=== PATIENT | male | born 1985 | race Caucasian/White ===

== ENCOUNTER 2021-12-12 11:45 | Inpatient (IN) | payer MEDICAID, SELFPAY ==
--- NOTE | ~2021-12-12 | CT_ITS ---
EXAMINATION: CT ABDOMEN AND PELVIS WITHOUT CONTRAST CLINICAL INFORMATION: Abdominal pain COMPARISON: None TECHNIQUE: Multidetector volumetric imaging was performed from the superior aspect of the liver through the pubic symphysis. Sagittal and coronal reformatted images were obtained on the technologist's workstation. This CT examination was performed using dose optimization techniques as appropriate, variously including the following: *Automated exposure control *Adjustment of mA and/or kV according to patient size (this includes techniques or standardized protocols for targeted exams where dose is matched to indication/reason for exam; i.e. extremities or head) *Use of iterative reconstruction technique DLP: 905 mGy-cm FINDINGS: LUNG BASES: The visualized lung bases are unremarkable. LIVER, GALLBLADDER, AND BILIARY TREE: The liver is normal in size, shape, and attenuation. No focal hepatic lesion or biliary ductal dilatation is present. The gallbladder is unremarkable with no evidence of radiopaque gallstones, gallbladder wall thickening, or obvious pericholecystic inflammatory changes. PANCREAS: Unremarkable. SPLEEN: Unremarkable. ADRENAL GLANDS: Unremarkable. KIDNEYS AND URETERS: The kidneys are normal in size, shape, and attenuation. No hydronephrosis, hydroureter, or calculi seen. No perinephric stranding. BLADDER: Unremarkable. GASTROINTESTINAL TRACT: The small and large bowel are unremarkable. The appendix is unremarkable. ABDOMINAL WALL: No significant hernia is appreciated. LYMPH NODES: Normal. VASCULAR: Unremarkable. PELVIC VISCERA: Unremarkable. OSSEOUS STRUCTURES: Unremarkable. CT/CT abdomen pelvis wo con IMPRESSION: Unremarkable exam. Fleischner guidelines were followed.
--- NOTE | ~2021-12-12 | CT_ITS ---
EXAMINATION: CT HEAD WITHOUT CONTRAST CLINICAL INFORMATION: Fall. Head injury. COMPARISON: None TECHNIQUE: Contiguous axial imaging was performed from the skull base to vertex without intravenous administration of contrast. This CT examination was performed using dose optimization techniques as appropriate, variously including the following: *Automated exposure control *Adjustment of mA and/or kV according to patient size (this includes techniques or standardized protocols for targeted exams where dose is matched to indication/reason for exam; i.e. extremities or head) *Use of iterative reconstruction technique DLP: 763 mGy-cm FINDINGS: There is no evidence of acute intracranial hemorrhage or territorial infarction. No abnormal mass effect or midline shift is seen. Guerrero to white matter differentiation is well preserved. No extra-axial fluid collections are identified. The ventricles are normal in size. There is no abnormal attenuation within the brain parenchyma. The osseous structures and soft tissues are normal. The mastoid air cells and visualized portions of the paranasal sinuses are well aerated. CT/CT head/brain wo con IMPRESSION: Unremarkable exam.
--- NOTE | ~2021-12-12 | US_ITS ---
EXAMINATION: US ABDOMEN LIMITED CLINICAL INFORMATION: Abnormal liver function tests. COMPARISON: Abdomen CT from 12/12/2021 TECHNIQUE: Real-time imaging of the right upper quadrant abdominal viscera. FINDINGS: PANCREAS: Normal. LIVER: Liver has normal size and contour. The liver parenchyma is diffusely, mildly hyperechoic. No focal liver lesion or intrahepatic bile duct dilatation. GALLBLADDER: There are a few gallbladder polyps of < 0.5 cm size. Otherwise, gallbladder is unremarkable. COMMON BILE DUCT: Normal in caliber measuring 0.4 cm in diameter. RIGHT KIDNEY: The visualized kidney is normal. The lower pole is partially obscured by bowel gas. No hydronephrosis. No renal calculi or focal parenchymal lesions. The kidney measures approximately 11 cm in length. FREE FLUID: None. US/US abdomen limited IMPRESSION: * Mild steatosis of the liver. * Gallbladder has a few small polyps. * No acute sonographic findings in the examined abdomen.
--- NOTE | ~2021-12-12 | XR_ITS ---
EXAMINATION: RIGHT HIP AND CHEST. CLINICAL INFORMATION: Fall with injury. Inhalation abnormality COMPARISON: None TECHNIQUE: Chest 2 views. AP pelvis and right hip 3 views. FINDINGS: Chest: The lungs are well-expanded and clear. The heart size is borderline normal. Pulmonary vascularity is normal. No gross bony modality seen. AP pelvis: There is normal symmetry of bilateral hip joints and SI joints. No fractures involving the pelvic bones. The soft tissues are normal. AP and frog-leg views right hip reveal no visible acute fracture, dislocation or bony modality. The soft tissues are normal. XR/XR chest 2V IMPRESSION: Unremarkable chest exam. Unremarkable AP pelvis and right hip exam.
--- NOTE | ~2021-12-12 | US_ITS ---
EXAMINATION: US VENOUS ULTRASOUND WITH DOPPLER LOWER EXTREMITY, RIGHT CLINICAL INFORMATION: Swelling and pain COMPARISON: None TECHNIQUE: Ultrasound of the deep veins is performed from the hip to the calf with compression sonography and color and pulse Doppler assessment. Spectral analysis with color-flow imaging is performed. FINDINGS: There is normal venous respiratory variation and augmented flow. The visualized common femoral vein, superficial femoral vein, profunda femoral vein, popliteal vein, and the trifurcation region appear patent. The mid and distal superficial femoral and popliteal veins could not the adequately compressed however this may be due to patient body habitus. There is no significant popliteal fossa cyst. US/US venous duplex LE RT IMPRESSION: No DVT demonstrated in the right lower extremity. Exam is limited due to body habitus.
--- NOTE | ~2021-12-12 | XR_ITS ---
EXAMINATION: RIGHT HIP AND CHEST. CLINICAL INFORMATION: Fall with injury. Inhalation abnormality COMPARISON: None TECHNIQUE: Chest 2 views. AP pelvis and right hip 3 views. FINDINGS: Chest: The lungs are well-expanded and clear. The heart size is borderline normal. Pulmonary vascularity is normal. No gross bony modality seen. AP pelvis: There is normal symmetry of bilateral hip joints and SI joints. No fractures involving the pelvic bones. The soft tissues are normal. AP and frog-leg views right hip reveal no visible acute fracture, dislocation or bony modality. The soft tissues are normal. XR/XR hip RT w PEL1V IMPRESSION: Unremarkable chest exam. Unremarkable AP pelvis and right hip exam.
[2021-12-12 11:49] VITALS: BP 110/45; PULSE 78; RESP 18; TEMP 36.6; O2SAT 98; BMI 39.5
--- NOTE | 2021-12-12 12:01 | ED_ITS ---
HPI - General Adult General Chief complaint: General Medical Stated complaint: Fall Time Seen by Provider: 12/12/21 12:01 Source: patient, family (mother) and aerial photograph interpreter Mode of arrival: ambulatory Limitations: language barrier History of Present Illness HPI narrative: Patient is a 36 year old male presenting to the emergency department today after getting dizzy and passing out. Patient states that he was working on a car that was running, in a sealed garage. Patient denies intentionally trying to hurt himself. Patient denies any substance use. Patient denies any current dizziness, lightheadedness, abdominal pain, nausea, vomiting, fever, chills, blurry vision, double vision, loss of vision, chest pain, difficulty breathing, shortness of breath, back pain, night sweats, pain with urination, increased urinary frequency, increased urinary urgency, blood in his urine or stool, syncope or a near syncopal episode, recent trauma or falls, bowel incontinence, bladder incontinence, bowel retention, bladder retention, or any other complaints at this time. Location: head Radiation: non-radiation Severity: mild Severity scale (1-10): 3 Quality: dull Pain Consistency: constant Exacerbating factors: none Associated symptoms: denies other symptoms Treatments prior to arrival: none Related Data Home Medications Medication Instructions Recorded Confirmed No Known Home Meds 12/12/21 12/12/21 Allergies Allergy/AdvReac Type Severity Reaction Status Date / Time No Known Allergies Allergy Verified 12/12/21 12:02 Review of Systems Constitutional: Constitutional: Reports no additional constitutional complaints, Denies chills, Denies fever(s), Reports headache(s) and Denies night sweats Eyes: Eyes: Reports no additional eye complaints, Denies blurry vision, Denies change in vision, Denies diplopia, Denies eye discharge, Denies loss of vision and Denies eye pain ENT: Denies dizziness and Reports headache(s) Cardiovascular: Cardiovascular: Reports no additional cardiovascular complaints, Denies chest pain, Denies lightheadedness, Denies Loss of Consciousness and Denies dyspnea Respiratory: Respiratory: Reports no additional respiratory complaints and Denies dyspnea Gastrointestinal: Gastrointestinal: Reports no additional gastrointestinal complaints, Denies abdominal pain, Denies melena, Denies hematochezia, Denies change in bowel habits and Denies change in stool character Genitourinary: Genitourinary: Reports no additional male genitourinary complaints, Denies hematuria, Denies oliguria, Denies difficulty urinating, Denies dysuria, Denies urinary frequency, Denies urinary hesitancy, Denies urinary incontinence and Denies urinary urgency Musculoskeletal: Musculoskeletal: Reports no additional musculoskeletal complaints, Denies numbness and Denies tingling Neurologic: Denies dizziness, Reports headache(s), Denies loss of vision, Denies numbness and Denies tingling Psychiatric: Psychiatric: Reports no additional psychiatric complaints Endocrine: Endocrine: Reports no additional endocrine complaints Hematologic/Lymphatic: Hematologic/Lymphatic: Reports no additional hematologic/lymphatic complaints Allergic/Immunologic: Allergic/Immunologic: Reports no additional allergic/immunologic complaints [facility] Past Medical History Attestation statement: The following information was validated with the patient. Source: old records reviewed Social History Social History Advance Directives: No Advance Directives Information Provided: No Physical Exam ED Vital Signs: Vital Signs - 24 hr 12/12/21 11:49 Temperature 98 F Pulse Rate 78 Respiratory Rate 18 Blood Pressure 110/45 L Pulse Oximetry 98 BMI result Body Mass Index 39.5 Const General: cooperative, no acute distress, alert and awake Nutritional Appearance: well nourished Orientation/consciousness: patient oriented x3 Limitations: no limitations HENMT Head: Yes normal to inspection and Yes atraumatic Ears: hearing grossly normal bilaterally and external ears normal General nose exam: Normal external nose present, no nasal discharge noted and no epistaxis Face and sinus: Yes normal facial exam, No abrasion and No laceration Mouth: Normal oral and palatal mucosa present, no drooling and no muffled voice Eyes General: appearance normal, both eyes and all related structures Periorbital: periorbital findings normal Eyelids: Yes eyelids normal Conjunctivae: conjunctivae normal Pupils: Equal, round and reactive pupils present EOM: EOMs intact bilaterally Neck Neck: Yes normal visual inspection, Yes full ROM and Yes no lymphadenopathy Chest Chest palpation & inspection: normal inspection of the chest Resp Effort & Inspection: normal respiratory effort and able to speak in complete sentences Auscultation: clear to auscultation bilaterally Cardio Rate: regular rate Rhythm: regular rhythm GI Inspection: Yes normal to inspection Skin Other: mild bruising to the forehead Neuro General: patient oriented x3 and moves all extremities Cranial nerves: Yes Equal, round and reactive pupils present Cognition (Neuro): normal cognition Motor exam (neuro): 5/5 motor strength present throughout Sensory Exam: Normal double simultaneous stimulation for sensation Coordination: [id number] test normal Extrem General: Yes normal to inspection, Yes full ROM and Yes capillary refill normal Psych Appearance: grossly normal Mental Status: mental status grossly normal Affect: normal affect Attitude: cooperative Thought process: Normal thought process present Thought content: Normal thought content present Insight: Good insight present (Psych) Medical Decision Making MDM Narrative Medical decision making narrative: Patient is a 36 year old male presenting to the emergency department today with accidental carbon monoxide poisoning, elevated LFTs, and an acute kidney injury. Patient's physical exam showed minimal bruising to the patient's forehead but was otherwise unremarkable. Patient's blood work showed markedly elevated LFTs and a creatinine as well as a markedly low GFR. Patient's white blood cell count was also elevated. Patient's acetaminophen level and ethanol levels were normal. Patient's carbon monoxide was 4.9%. Upon reevaluation, patient admitted to using Percocet regularly and a large amount of Tylenol on a daily basis. Additionally, patient states that he uses cocaine. Patient denied any alcohol abuse or use. Patient's EKG was unremarkable. Patient's head and abdominal CT showed no acute process. Patient's right hip x-ray showed no acute process. I explained my physical exam findings as well as all test results to the patient and the patient's mother. I answered all questions asked by the patient and the patient's mother. Patient was placed on 15LPM of Oxygen via NRB to address his elevated carbon monoxide. Patient was given 500ml of NS. I spoke to Dr. Perera, who agreed to admission of the patient. Patient and the patient's mother verbalized agreement and understanding with this treatment plan and admission. Differential Diagnosis Differential Diagnosis: carbon monoxide poisioning, acute kidney injury, opioid abuse Medical Records Medical records reviewed: Yes I reviewed the patient's medical records. Lab Data Lab results reviewed: Yes I reviewed the patient's lab results. Result diagrams: 12/12/21 12:53 12/12/21 12:53 Labs: Lab Results 12/12/21 12/12/21 12/12/21 Range/Units 12:53 12:53 12:59 WBC 17.8 H (4.8-10.8) X10*3/uL RBC 5.18 (4.60-5.80) X10*6/uL Hgb 14.4 (14.0-18.0) g/dl Hct 44.8 (42.0-52.0) % MCV 86.5 (80.0-98.0) fL MCH 27.8 (27.0-33.0) pg MCHC 32.1 (31.0-36.0) g/dl RDW 14.4 (11.0-16.0) % Plt Count 362 (160-400) X10*3/uL MPV 8.5 L (9.4-12.4) fL Immature Gran % (Auto) 0.5 H (0.0-0.4) % Neut % (Auto) 81.3 H (45-73) % Lymph % (Auto) 5.9 L (20-40) % Lipscomb % (Auto) 12.2 H (2-11) % Eos % (Auto) 0.0 (0-4) % Baso % (Auto) 0.1 (0-2) % Lymph # (Auto) 1.1 L (1.2-4.9) X10*3/uL Lipscomb # (Auto) 2.2 H (0.1-1.2) X10*3/uL Eos # (Auto) 0.0 (0.0-0.4) X10*3/uL Baso # (Auto) 0.0 (0.0-0.2) X10*3/uL Abs Immat Gran (auto) 0.09 H (0.00-0.03) X10*3/uL Absolute Neuts (auto) 14.5 H (2.0-8.3) x10*3/uL Absolute Nucleated RBC 0.000 (0.0-0.012) X10*3/uL Nucleated RBC % (auto) 0.0 (0.0-0.2) /100WBC Smear Tech's Comments VERIFIED VBG pH 7.34 (7.32-7.43) VBG pCO2 35 mmHg VBG pO2 116 mmHg VBG HCO3 19 L (22-26) mmol/L VBG O2 Saturation 99.0 % VBG Base Excess -5.4 mmol/L Carboxyhemoglobin % % Sodium 136 (135-145) mmol/L Potassium 5.1 (3.3-5.1) mmol/L Chloride 102 (96-108) mmol/L Carbon Dioxide 20 L (22-29) mmol/L Anion Gap 19 (12-20) BUN 23 H (9-16) mg/dL Creatinine 3.10 H (0.5-1.4) mg/dL Estim Creat Clear Calc 38.9 Estimated GFR 23 Random Glucose 92 (60-115) mg/dL Calcium 8.3 L (8.4-10.2) mg/dL Total Bilirubin 0.6 (0.0-1.0) mg/dL AST 889 H (5-37) U/L ALT 238 H (0-40) U/L Alkaline Phosphatase 71 (39-117) U/L Total Protein 7.5 (6.5-8.0) g/dL Albumin 4.2 (3.5-5.0) g/dL Salicylates < 5.0 L (15-30) mg/dL Acetaminophen < 1 (<30) mcg/mL Ethyl Alcohol mg/dL COVID-19 (SHIV) (Negative) COVID-19 Clin Com 12/12/21 12/12/21 12/12/21 Range/Units 13:06 13:56 13:56 WBC (4.8-10.8) X10*3/uL RBC (4.60-5.80) X10*6/uL Hgb (14.0-18.0) g/dl Hct (42.0-52.0) % MCV (80.0-98.0) fL MCH (27.0-33.0) pg MCHC (31.0-36.0) g/dl RDW (11.0-16.0) % Plt Count (160-400) X10*3/uL MPV (9.4-12.4) fL Immature Gran % (Auto) (0.0-0.4) % Neut % (Auto) (45-73) % Lymph % (Auto) (20-40) % Lipscomb % (Auto) (2-11) % Eos % (Auto) (0-4) % Baso % (Auto) (0-2) % Lymph # (Auto) (1.2-4.9) X10*3/uL Lipscomb # (Auto) (0.1-1.2) X10*3/uL Eos # (Auto) (0.0-0.4) X10*3/uL Baso # (Auto) (0.0-0.2) X10*3/uL Abs Immat Gran (auto) (0.00-0.03) X10*3/uL Absolute Neuts (auto) (2.0-8.3) x10*3/uL Absolute Nucleated RBC (0.0-0.012) X10*3/uL Nucleated RBC % (auto) (0.0-0.2) /100WBC Smear Tech's Comments VBG pH (7.32-7.43) VBG pCO2 mmHg VBG pO2 mmHg VBG HCO3 (22-26) mmol/L VBG O2 Saturation % VBG Base Excess mmol/L Carboxyhemoglobin % 4.9 % Sodium (135-145) mmol/L Potassium (3.3-5.1) mmol/L Chloride (96-108) mmol/L Carbon Dioxide (22-29) mmol/L Anion Gap (12-20) BUN (9-16) mg/dL Creatinine (0.5-1.4) mg/dL Estim Creat Clear Calc Estimated GFR Random Glucose (60-115) mg/dL Calcium (8.4-10.2) mg/dL Total Bilirubin (0.0-1.0) mg/dL AST (5-37) U/L ALT (0-40) U/L Alkaline Phosphatase (39-117) U/L Total Protein (6.5-8.0) g/dL Albumin (3.5-5.0) g/dL Salicylates (15-30) mg/dL Acetaminophen (<30) mcg/mL Ethyl Alcohol < 10 mg/dL COVID-19 (SHIV) Negative (Negative) COVID-19 Clin Com See Note Imaging Data CT scan - head: Attestation: I personally reviewed and interpreted this imaging study as follows: My impression: No acute process. Radiologist's impression: EXAMINATION: CT HEAD WITHOUT CONTRAST CLINICAL INFORMATION: Fall. Head injury.? COMPARISON: None TECHNIQUE: Contiguous axial imaging was performed from the skull base to vertex without intravenous administration of contrast. This CT examination was performed using dose optimization techniques as appropriate, variously including the following: *Automated exposure control *Adjustment of mA and/or kV according to patient size (this includes techniques or standardized protocols for targeted exams where dose is matched to indication/reason for exam; i.e. extremities or head) *Use of iterative reconstruction technique DLP: 763 mGy-cm FINDINGS: There is no evidence of acute intracranial hemorrhage or territorial infarction. No abnormal mass effect or midline shift is seen. Guerrero to white matter differentiation is well preserved. No extra-axial fluid collections are identified. The ventricles are normal in size. There is no abnormal attenuation within the brain parenchyma. The osseous structures and soft tissues are normal. The mastoid air cells and visualized portions of the paranasal sinuses are well aerated. ? CT/CT head/brain wo con IMPRESSION: Unremarkable exam. Dictated By: Mel Lim MD Signed By: Electronically signed by Mel Lim MD 12/12/[address] scan - abdomen: Attestation: I personally reviewed and interpreted this imaging study as follows: My impression: No acute process. Radiologist's impression: EXAMINATION: CT ABDOMEN AND PELVIS WITHOUT CONTRAST? CLINICAL INFORMATION: Abdominal pain? COMPARISON: None? TECHNIQUE: Multidetector volumetric imaging was performed from the superior aspect of the liver through the pubic symphysis. Sagittal and coronal reformatted images were obtained on the technologist's workstation.? This CT examination was performed using dose optimization techniques as appropriate, variously including the following: *Automated exposure control *Adjustment of mA and/or kV according to patient size (this includes techniques or standardized protocols for targeted exams where dose is matched to indication/reason for exam; i.e. extremities or head) *Use of iterative reconstruction technique DLP: 905 mGy-cm FINDINGS: LUNG BASES: The visualized lung bases are unremarkable.? LIVER, GALLBLADDER, AND BILIARY TREE: The liver is normal in size, shape, and attenuation. No focal hepatic lesion or biliary ductal dilatation is present. The gallbladder is unremarkable with no evidence of radiopaque gallstones, gallbladder wall thickening, or obvious pericholecystic inflammatory changes.? PANCREAS: Unremarkable.? SPLEEN: Unremarkable.? ADRENAL GLANDS: Unremarkable.? KIDNEYS AND URETERS: The kidneys are normal in size, shape, and attenuation. No hydronephrosis, hydroureter, or calculi seen. No perinephric stranding. ? BLADDER: Unremarkable.? GASTROINTESTINAL TRACT: The small and large bowel are unremarkable. The appendix is unremarkable.? ABDOMINAL WALL: No significant hernia is appreciated.? LYMPH NODES: Normal. VASCULAR: Unremarkable. PELVIC VISCERA: Unremarkable.? OSSEOUS STRUCTURES: Unremarkable.? CT/CT abdomen pelvis wo con IMPRESSION: Unremarkable exam. ? Fleischner guidelines were followed. Dictated By: Mel Lim MD Signed By: Electronically signed by Mel Lim MD 12/12/21 1449 Hip/pelvis and chest x-ray: Attestation: I personally reviewed and interpreted this imaging study as follows: My impression: No acute process. Radiologist's impression: EXAMINATION: RIGHT HIP AND CHEST. CLINICAL INFORMATION: Fall with injury. Inhalation abnormality COMPARISON: None? TECHNIQUE: Chest 2 views. AP pelvis and right hip 3 views.? FINDINGS: Chest: The lungs are well-expanded and clear. The heart size is borderline normal. Pulmonary vascularity is normal. No gross bony modality seen. AP pelvis: There is normal symmetry of bilateral hip joints and SI joints. No fractures involving the pelvic bones. The soft tissues are normal. AP and frog-leg views right hip reveal no visible acute fracture, dislocation or bony modality. The soft tissues are normal. XR/XR hip RT w PEL1V IMPRESSION: Unremarkable chest exam. ? Unremarkable AP pelvis and right hip exam.? Dictated By: Wm Poe MD Signed By: Electronically signed by Wm Poe MD 12/12/21 1308 ECG Data Attestation: I personally reviewed and interpreted this ECG as follows: Prior ECG tracings: not available for review Interpretation: Vent. Rate: 074 BPM ? ? Atrial Rate: 074 BPM P-R Int: 142 ms? QRS Dur: 094 ms QT Int: 396 ms ? ? ? P-R-T Axes: 047 026 021 degrees QTc Int: 439 ms ? Normal sinus rhythm Normal ECG No previous ECGs available Critical Care Time Critical Care Time Critical Care Time: Yes Total Critical Care Time: 30 Attestation: I spent 30 minutes of Critical Care Time with this patient. This does not include time spent on separately reported billable procedures. Discharge Plan Discharge Clinical Impression: Elevated LFTs, Acute kidney injury, Carbon monoxide exposure, Opioid abuse Patient Disposition: Admitted As Inpatient Prescriptions: No Action No Known Home Meds 0RF Print Language: Tamazight
--- NOTE | 2021-12-12 12:02 | ECG_ITS ---
Test Reason : DIZZY Blood Pressure : / mmHG Vent. Rate : 074 BPM Atrial Rate : 074 BPM P-R Int : 142 ms QRS Dur : 094 ms QT Int : 396 ms P-R-T Axes : 047 026 021 degrees QTc Int : 439 ms Normal sinus rhythm Normal ECG No previous ECGs available Referred By: Amira Garza Electronically Signed By:Berry Layton
[2021-12-12 13:00] LABS: Basophils Percent Auto 0.1 % (0-2); Hematocrit 44.8 % (42.0-52.0); Hemoglobin 14.4 g/dl (14.0-18.0); Imm Gran Abs Auto 0.09 X10*3/uL (0.00-0.03); Imm Gran Pct Auto 0.5 % (0.0-0.4); Lymphocytes Absolute Auto 1.1 X10*3/uL (1.2-4.9); Lymphocytes Percent Auto 5.9 % (20-40); MANUAL DIFF FLAG SCAN; Mean Corpuscular HGB Conc 32.1 g/dl (31.0-36.0); Mean Corpuscular Hemoglobin 27.8 pg (27.0-33.0); Mean Corpuscular Volume 86.5 fL (80.0-98.0); Mean Platelet Volume 8.5 fL (9.4-12.4); Monocytes Absolute Auto 2.2 X10*3/uL (0.1-1.2); Monocytes Percent Auto 12.2 % (2-11); Neutrophils Absolute Auto 14.5 x10*3/uL (2.0-8.3); Neutrophils Percent Auto 81.3 % (45-73); Platelet Count 362 X10*3/uL (160-400); Red Blood Count 5.18 X10*6/uL (4.60-5.80); Red Cell Distribution Width 14.4 % (11.0-16.0); SCAN SMEAR FLAG 1; White Blood Count 17.8 X10*3/uL (4.8-10.8)
[2021-12-12 13:13] LABS: Carbon Monoxide POC 4.9 %
[2021-12-12 13:13] LABS: VBG Base Excess -5.4 mmol/L; VBG HCO3 19 mmol/L (22-26); VBG pCO2 35 mmHg; VBG pH 7.34 (7.32-7.43); VBG pO2 116 mmHg
[2021-12-12 13:17] LABS: SLIDE REVIEW VERIFIED
[2021-12-12 13:26] LABS: Carbon Monoxide Refer to POC result
[2021-12-12 13:27] LABS: Venous Blood Gas Refer to POC result
[2021-12-12 13:29] LABS: Alanine Aminotransferase 238 U/L (0-40); Albumin Level 4.2 g/dL (3.5-5.0); Alkaline Phosphatase 71 U/L (39-117); Anion Gap 19 (12-20); Aspartate Amino Transferase 889 U/L (5-37); Bilirubin Total 0.6 mg/dL (0.0-1.0); Blood Urea Nitrogen 23 mg/dL (9-16); Calcium 8.3 mg/dL (8.4-10.2); Carbon Dioxide 20 mmol/L (22-29); Chloride 102 mmol/L (96-108); Creatinine Clr Calc Pharmacy 38.9; Estimated Glomerular Filt Rate 23; Glucose Random 92 mg/dL (60-115); Potassium 5.1 mmol/L (3.3-5.1); Sodium 136 mmol/L (135-145); Total Protein 7.5 g/dL (6.5-8.0)
[2021-12-12] MEDS: 0.9 % Sodium Chloride 1,000 ML 500 ML IVCONT (13:46)
--- NOTE | 2021-12-12 13:56 | PC.NURSE ---
IVF started per order, pt denies SI, pt admits to taking percocet daily with extra tylenol at night to sleep. pt to be put on NRB mask when he finishes the food he is eating- provider is aware.
[2021-12-12 13:58] LABS: Acetaminophen LAB < 1 mcg/mL (<30); Salicylate < 5.0 mg/dL (15-30)
[2021-12-12 14:15] LABS: Ethanol < 10 mg/dL
[2021-12-12 14:16] LABS: COVID-19 Test Negative (Negative)
--- NOTE | 2021-12-12 14:47 | PHA.MEDREC ---
Pharmacy Consult ? Medication Reconciliation Pharmacy has completed the medication reconciliation.
--- NOTE | 2021-12-12 16:24 | P.HPHOSP_ITS ---
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 He states the car was running and exhaust toes was not connected to the outside. When discussed with , she states patient has been detailing for some time and this is unusual that he would not prevent the cars. She also states he did large amount of cocaine overnight. She states he gets very depressed after these episodes. In the emergency room workup consistent with creatinine of 3.35 [place] [address] and transaminitis. Patient will be admitted for treatment of same. Of note patient carbon dioxide level was 4.9 (nonsmoker) (all information gleaned through an historical interpreter) Review of Systems Review of Systems: Denies chest pain Denies shortness of breath Denies nausea vomiting diarrhea Denies fever chills And denies drug and alcohol use PMFSH Social History Advance Directives: No Advance Directives Information Provided: No Meds Allergies Allergy/AdvReac Type Severity Reaction Status Date / Time No Known Allergies Allergy Verified 12/12/21 12:02 Active Medications: Current Medications Enoxaparin Sodium (Enoxaparin Sodium 40 Mg/0.4 Ml Syringe) 40 mg SUBCUT Q24H [facility] Sodium Chloride (Ns) 1,000 mls @ 200 mls/hr IVCONT .Q5H [facility] Stop: 12/13/21 02:29 Ondansetron HCl (Ondansetron Hcl 4 Mg/2 Ml Vial) 4 mg IVPUSH Q8H PRN PRN Reason: Nausea and Vomiting Pharmacy Consult (Consult Rx Perform Med Rec) 1 each MISCELLANE ONCE PRN PRN Reason: Consult order Sodium Chloride (0.9 % Sodium Chloride Flush 3 Ml Syringe) 3 ml IVFLUSH QSHIFT [facility] Home Medications Medication Instructions Recorded Confirmed Last Taken Type No Known Home Meds 12/12/21 12/12/21 Unknown History Physical Exam Vital Signs and Narrative: Vital Signs: Last Vital Signs Temp 98 F 12/12/21 11:49 Pulse 78 12/12/21 11:49 Resp 18 12/12/21 11:49 BP 110/45 L 12/12/21 11:49 Pulse Ox 98 12/12/21 11:49 BMI result Body Mass Index 39.5 Const: Other: Awake alert oriented x3 no acute distress Resp: Other: Clear to auscultation bilaterally no rales rhonchi wheezes Cardio: Other: No S4; positive S1-S2; no murmurs rubs or gallops GI: Other: Soft nontender nondistended with normoactive bowel sounds Extrem: Other: No edema bilaterally Results Labs CBC and Chem 7: 12/12/21 12:53 12/12/21 12:53 Labs: Laboratory Results - last 24 hr 12/12/21 12/12/21 12/12/21 12:53 12:53 12:59 MCV 86.5 MCH 27.8 MCHC 32.1 RDW 14.4 Plt Count 362 MPV 8.5 L Immature Gran % (Auto) 0.5 H Neut % (Auto) 81.3 H Lymph % (Auto) 5.9 L Heard % (Auto) 12.2 H Eos % (Auto) 0.0 Baso % (Auto) 0.1 Lymph # (Auto) 1.1 L Heard # (Auto) 2.2 H Eos # (Auto) 0.0 Baso # (Auto) 0.0 Abs Immat Gran (auto) 0.09 H Absolute Neuts (auto) 14.5 H Absolute Nucleated RBC 0.000 Nucleated RBC % (auto) 0.0 Smear Tech's Comments VERIFIED VBG pH 7.34 VBG pCO2 35 VBG pO2 116 VBG HCO3 19 L VBG O2 Saturation 99.0 VBG Base Excess -5.4 Carboxyhemoglobin % Anion Gap 19 Estim Creat Clear Calc 38.9 Estimated GFR 23 Random Glucose 92 Calcium 8.3 L Total Bilirubin 0.6 AST 889 H ALT 238 H Alkaline Phosphatase 71 Total Protein 7.5 Albumin 4.2 Salicylates < 5.0 L Acetaminophen < 1 Ethyl Alcohol COVID-19 ([facility]) COVID-19 Clin Com 12/12/21 12/12/21 12/12/21 13:06 13:56 13:56 MCV MCH MCHC RDW Plt Count MPV Immature Gran % (Auto) Neut % (Auto) Lymph % (Auto) Heard % (Auto) Eos % (Auto) Baso % (Auto) Lymph # (Auto) Heard # (Auto) Eos # (Auto) Baso # (Auto) Abs Immat Gran (auto) Absolute Neuts (auto) Absolute Nucleated RBC Nucleated RBC % (auto) Smear Tech's Comments VBG pH VBG pCO2 VBG pO2 VBG HCO3 VBG O2 Saturation VBG Base Excess Carboxyhemoglobin % 4.9 Anion Gap Estim Creat Clear Calc Estimated GFR Random Glucose Calcium Total Bilirubin AST ALT Alkaline Phosphatase Total Protein Albumin Salicylates Acetaminophen Ethyl Alcohol < 10 COVID-19 ([facility]) Negative COVID-19 Clin Com See Note Imaging Radiologist's Impressions: Impressions Chest X-Ray 12/12/21 12:35 IMPRESSION: Unremarkable chest exam. Unremarkable AP pelvis and right hip exam. Hip/Pelvis X-Ray 12/12/21 12:35 IMPRESSION: Unremarkable chest exam. Unremarkable AP pelvis and right hip exam. Abdomen/Pelvis CT 12/12/21 14:23 IMPRESSION: Unremarkable exam. Fleischner guidelines were followed. Head CT 12/12/21 14:23 IMPRESSION: Unremarkable exam. 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 Noted to have acute renal injury along with transaminitis. 1.?CO2 poisioning -high-flow O2 -repeat CO2 level later tonight 2. TALYA(question drug related or other.) -volume repletion CKs pending -check renal/divalent in am -if no response to volume. .. Renal consult 3. Transaminitis -follow response to fluids -check hepatitis panel -check right upper quadrant ultrasound in a.m. Lovenox FUll Code Will require 1-2 midnights for treatment of transaminitis and acute kidney injury Quality Stroke Does the patient have a stroke diagnosis?: No VTE Prior VTE?: No VTE Risk Level:: Medical - moderate - high VTE Device Contraindication: Treatment Not Indicated VTE Drug Contraindication: N/A - Med Ordered
--- NOTE | 2021-12-12 16:42 | PC.NURSE ---
this technical writer assumed care of this pt at 1530. Critical Creatinine Kinase received: [id number]. Dr Perera aware.
[2021-12-12] MEDS: 0.9 % Sodium Chloride 1,000 ML 200 ML IVCONT (17:07)
[2021-12-12 17:29] VITALS: BP 134/78; PULSE 72; RESP 19
[2021-12-12] MEDS: Enoxaparin Sodium 40 MG/0.4 ML SYRINGE SUBCUT (18:14)
--- NOTE | 2021-12-12 19:11 | PC.NURSE ---
Took report from Spencer to assume care of Pt, no apparent distress at this time, this RN continues to monitor.
--- NOTE | 2021-12-12 21:58 | PC.NURSE ---
Report given to RN at [facility]flow, [facility] to transport Pt.
[2021-12-12 22:28] VITALS: BP 123/68; PULSE 83; RESP 15; O2SAT 98
[2021-12-12 22:39] VITALS: BP 90/73; PULSE 98; RESP 16; TEMP 37.4; O2SAT 99
[2021-12-13] VITALS: BP 156/90; PULSE 82; RESP 16; TEMP 37.4; O2SAT 98
--- NOTE | 2021-12-13 00:31 | PC.NURSE ---
pt refused polanco catheter placement. will continue to monitor output
[2021-12-13] MEDS: 0.9 % Sodium Chloride Flush 3 ML SYRINGE IVFLUSH ×4 (01:46→19:32)
[2021-12-13 03:51] LABS: Appearance Urine HAZY; Color Urine DK YELLOW; Glucose Urine UA NEG (NEG); Leukocyte Esterase Urine NEG (NEG); Nitrite Urine NEG (NEG); PH 5.5 (5.0-8.0); Specific Gravity - Urine >= 1.030 (1.005-1.025); UACC Culture Trigger NO; Urine Blood 3+ (NEG); Urine Ketones 5 MG/DL (NEG); Urine Protein 3+ MG/DL (NEG-TRACE)
[2021-12-13 03:58] LABS: RBC Urine 0-2 /HPF (0); Squamous Epithelial Cell Urine 1+ /LPF; WBC Urine 0-2 /HPF (0-4)
[2021-12-13 03:59] LABS: Bacteria Urine 1+ /LPF; Mucus Urine 1+ /LPF; Sperm Urine NOTED; Waxy Casts Urine 0-2 /LPF
[2021-12-13 04:07] LABS: Amphetamine Screen Urine Not Detected (Not Detect); Barbiturates, Urine Not Detected (Not Detect); Benzodiazepines Screen Urine Not Detected (Not Detect); Cannabinoid Screen Urine Not Detected (Not Detect); Cocaine Screen Urine POSITIVE (Not Detect); Fentanyl, urine POSITIVE (Not Detect); Opiate Screen Urine POSITIVE (Not Detect); Phencyclidine Screen Urine Not Detected (Not Detect)
[2021-12-13 07:54] VITALS: BP 137/63; PULSE 63; RESP 14; TEMP 36.8; O2SAT 94
[2021-12-13 08:32] LABS: MANUAL DIFF FLAG NO
[2021-12-13 08:36] LABS: Basophils Percent Auto 0.2 % (0-2); Eosinophils Absolute Auto 0.1 X10*3/uL (0.0-0.4); Eosinophils Percent Auto 0.4 % (0-4); Hematocrit 42.8 % (42.0-52.0); Imm Gran Abs Auto 0.06 X10*3/uL (0.00-0.03); Imm Gran Pct Auto 0.4 % (0.0-0.4); Lymphocytes Absolute Auto 1.5 X10*3/uL (1.2-4.9); Lymphocytes Percent Auto 11.2 % (20-40); Mean Corpuscular HGB Conc 32.7 g/dl (31.0-36.0); Mean Corpuscular Hemoglobin 27.9 pg (27.0-33.0); Mean Corpuscular Volume 85.4 fL (80.0-98.0); Mean Platelet Volume 8.8 fL (9.4-12.4); Monocytes Absolute Auto 1.3 X10*3/uL (0.1-1.2); Monocytes Percent Auto 9.6 % (2-11); Neutrophils Absolute Auto 10.7 x10*3/uL (2.0-8.3); Neutrophils Percent Auto 78.2 % (45-73); Platelet Count 308 X10*3/uL (160-400); Red Blood Count 5.01 X10*6/uL (4.60-5.80); Red Cell Distribution Width 13.9 % (11.0-16.0); White Blood Count 13.7 X10*3/uL (4.8-10.8)
[2021-12-13 09:02] LABS: Alanine Aminotransferase 254 U/L (0-40); Albumin Level 3.5 g/dL (3.5-5.0); Alkaline Phosphatase 61 U/L (39-117); Anion Gap 15 (12-20); Aspartate Amino Transferase 744 U/L (5-37); Bilirubin Total 0.8 mg/dL (0.0-1.0); Blood Urea Nitrogen 40 mg/dL (9-16); Calcium 8.5 mg/dL (8.4-10.2); Carbon Dioxide 22 mmol/L (22-29); Chloride 103 mmol/L (96-108); Creatinine Clr Calc Pharmacy 23.2; Estimated Glomerular Filt Rate 13; Glucose Random 133 mg/dL (60-115); Potassium 4.3 mmol/L (3.3-5.1); Sodium 136 mmol/L (135-145); Total Protein 6.3 g/dL (6.5-8.0)
[2021-12-13] MEDS: 0.9 % Sodium Chloride 1,000 ML 200 ML IVCONT (12:51)
--- NOTE | 2021-12-13 16:03 | P.PNIM_ITS ---
Subjective Subjective Date of Service: 12/13/21 Interval History: No acute issues overnight. See case trending downward slightly; renal function worse. 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 Review of Systems Denies chest pain Denies shortness of breath Denies nausea vomiting diarrhea Denies fever chills Physical Exam Vital Signs: Vital Signs: Last Vital Signs Temp 98.3 F 12/13/21 07:54 Pulse 63 12/13/21 07:54 Resp 14 12/13/21 07:54 BP 137/63 12/13/21 07:54 Pulse Ox 94 12/13/21 07:54 BMI result Body Mass Index 39.5 Const: Other: Awake alert oriented x3 no acute distress Resp: Other: Clear to auscultation bilaterally no rales rhonchi wheezes Cardio: Other: No S4; positive S1-S2; no murmurs rubs or gallops GI: Other: Soft nontender nondistended with normoactive bowel sounds Extrem: Other: No edema bilaterally Objective Data Active Medications Enoxaparin Sodium (Enoxaparin Sodium 40 Mg/0.4 Ml Syringe) 40 mg SUBCUT Q24H [facility] Last Admin: 12/12/21 18:14 Dose: 40 mg Documented by: BREEZY Sodium Chloride (Ns) 1,000 mls @ 200 mls/hr IVCONT .Q5H [facility] Stop: 12/14/21 04:29 Last Admin: 12/13/21 12:51 Dose: 200 mls/hr Documented by: COOPEB Ondansetron HCl (Ondansetron Hcl 4 Mg/2 Ml Vial) 4 mg IVPUSH Q8H PRN PRN Reason: Nausea and Vomiting Pharmacy Consult (Consult Rx Perform Med Rec) 1 each MISCELLANE ONCE PRN PRN Reason: Consult order Sodium Chloride (0.9 % Sodium Chloride Flush 3 Ml Syringe) 3 ml IVFLUSH QSHIFT [facility] Last Admin: 12/13/21 07:49 Dose: 3 ml Documented by: MARU Labs CBC & Chem 7: 12/13/21 08:15 12/13/21 08:15 Labs: Laboratory Results - last 24 hr 12/12/21 12/12/21 12/12/21 12:53 12:59 13:06 MCV MCH MCHC RDW Plt Count MPV Immature Gran % (Auto) Neut % (Auto) Lymph % (Auto) [place] % (Auto) Eos % (Auto) Baso % (Auto) Lymph # (Auto) [place] # (Auto) Eos # (Auto) Baso # (Auto) Abs Immat Gran (auto) Absolute Neuts (auto) Absolute Nucleated RBC Nucleated RBC % (auto) VBG pH 7.34 VBG pCO2 35 VBG pO2 116 VBG HCO3 19 L VBG O2 Saturation 99.0 VBG Base Excess -5.4 Carboxyhemoglobin % 4.9 Anion Gap Estim Creat Clear Calc Estimated GFR Random Glucose Calcium Total Bilirubin AST ALT Alkaline Phosphatase Total Creatine Kinase 78640 H Total Protein Albumin Urine Color Urine Appearance Urine pH Ur Specific [place] Urine Protein Urine Glucose (UA) Urine Ketones Urine Blood Urine Nitrite Ur Leukocyte Esterase Urine RBC Urine WBC Ur Squamous Epith Cells Urine Bacteria Waxy Casts Urine Mucus Urine Yeast Urine Sperm Ur Random Sodium Urine Opiates Screen Urine Fentanyl Screen Ur Barbiturates Screen Ur Phencyclidine Scrn Ur Amphetamines Screen U Benzodiazepines Scrn Urine Cocaine Screen U Marijuana (THC) Screen 12/13/21 12/13/21 12/13/21 03:40 03:40 03:40 MCV MCH MCHC RDW Plt Count MPV Immature Gran % (Auto) Neut % (Auto) Lymph % (Auto) [place] % (Auto) Eos % (Auto) Baso % (Auto) Lymph # (Auto) [place] # (Auto) Eos # (Auto) Baso # (Auto) Abs Immat Gran (auto) Absolute Neuts (auto) Absolute Nucleated RBC Nucleated RBC % (auto) VBG pH VBG pCO2 VBG pO2 VBG HCO3 VBG O2 Saturation VBG Base Excess Carboxyhemoglobin % Anion Gap Estim Creat Clear Calc Estimated GFR Random Glucose Calcium Total Bilirubin AST ALT Alkaline Phosphatase Total Creatine Kinase Total Protein Albumin Urine Color DK YELLOW Urine Appearance HAZY Urine pH 5.5 Ur Specific [place] >= 1.030 H Urine Protein 3+ H Urine Glucose (UA) NEG Urine Ketones 5 Urine Blood 3+ H Urine Nitrite NEG Ur Leukocyte Esterase NEG Urine RBC 0-2 Urine WBC 0-2 Ur Squamous Epith Cells 1+ Urine Bacteria 1+ Waxy Casts 0-2 Urine Mucus 1+ Urine Yeast 1+ Urine Sperm NOTED Ur Random Sodium 127.0 Urine Opiates Screen POSITIVE H Urine Fentanyl Screen POSITIVE H Ur Barbiturates Screen Not Detected Ur Phencyclidine Scrn Not Detected Ur Amphetamines Screen Not Detected U Benzodiazepines Scrn Not Detected Urine Cocaine Screen POSITIVE H U Marijuana (THC) Screen Not Detected 12/13/21 12/13/21 08:15 08:15 MCV 85.4 MCH 27.9 MCHC 32.7 RDW 13.9 Plt Count 308 MPV 8.8 L Immature Gran % (Auto) 0.4 Neut % (Auto) 78.2 H Lymph % (Auto) 11.2 L [place] % (Auto) 9.6 Eos % (Auto) 0.4 Baso % (Auto) 0.2 Lymph # (Auto) 1.5 [place] # (Auto) 1.3 H Eos # (Auto) 0.1 Baso # (Auto) 0.0 Abs Immat Gran (auto) 0.06 H Absolute Neuts (auto) 10.7 H Absolute Nucleated RBC 0.000 Nucleated RBC % (auto) 0.0 VBG pH VBG pCO2 VBG pO2 VBG HCO3 VBG O2 Saturation VBG Base Excess Carboxyhemoglobin % Anion Gap 15 Estim Creat Clear Calc 23.2 Estimated GFR 13 Random Glucose 133 H D Calcium 8.5 Total Bilirubin 0.8 AST 744 H ALT 254 H Alkaline Phosphatase 61 Total Creatine Kinase 52638 H Total Protein 6.3 L Albumin 3.5 Urine Color Urine Appearance Urine pH Ur Specific [place] Urine Protein Urine Glucose (UA) Urine Ketones Urine Blood Urine Nitrite Ur Leukocyte Esterase Urine RBC Urine WBC Ur Squamous Epith Cells Urine Bacteria Waxy Casts Urine Mucus Urine Yeast Urine Sperm Ur Random Sodium Urine Opiates Screen Urine Fentanyl Screen Ur Barbiturates Screen Ur Phencyclidine Scrn Ur Amphetamines Screen U Benzodiazepines Scrn Urine Cocaine Screen U Marijuana (THC) Screen Assessment and Plan (1) Acute kidney injury: Status: Acute (2) Elevated LFTs: Status: Acute (3) Rhabdomyolysis: Status: Acute Plan 36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 Noted to have acute renal injury along with transaminitis. Admits to cocaine use night prior to admission 1AKI/rhabdomyolysis -CKs down to 55k -volume repletion NSS @200/hr -check renal/divalent in am -Discussed with Renal....continue current therapies 3. Transaminitis -follow response to fluids -hepatitis panel pending -check right upper quadrant ultrasound in a.m. Lovenox FUll Code Will require 1-2 midnights for treatment of transaminitis and acute kidney injury Quality Stroke Does the patient have a stroke diagnosis?: No VTE Prior VTE?: No VTE Risk Level:: Medical - moderate - high VTE Device Contraindication: Treatment Not Indicated VTE Drug Contraindication: N/A - Med Ordered
[2021-12-13 16:47] VITALS: BP 135/78; PULSE 69; RESP 16; TEMP 36.8; O2SAT 98
[2021-12-13] MEDS: Enoxaparin Sodium 40 MG/0.4 ML SYRINGE SUBCUT (17:22)
[2021-12-13 18:06] LABS: Creatinine Urine 332.27 mg/dL
[2021-12-13 18:58] VITALS: BMI 39.5
[2021-12-13 19:34] VITALS: BP 142/79; PULSE 82; RESP 18; TEMP 37.6; O2SAT 99
[2021-12-13] MEDS: traMADoL HCL 50 MG TABLET PO (20:43)
--- NOTE | 2021-12-13 20:44 | MHC.PIE ---
p; pt c/o pain 06/28 rt thigh on arrival from [facility]; dr bruno notified; new order ultram q6 e; will cont to monitor
[2021-12-13 23:50] VITALS: BP 139/76; PULSE 77; RESP 20; TEMP 37.3; O2SAT 99
[2021-12-14 03:22] VITALS: BP 123/77; PULSE 80; RESP 19; TEMP 37.1; O2SAT 98
[2021-12-14 04:09] LABS: HBS Num1 1.21 mIU/mL (0-7.99); HBc Num1 0.23 S/CO (0.00-0.79); HBsAGNum1 0.23 S/CO (0.00-0.99); Hepatitis B Core Antibody Nonreactive (Nonreactive); Hepatitis B Surface Antigen Negative (Negative); ~Hepatitis B Surface Antibody NONREACTIVE (Nonreactive)
[2021-12-14 04:19] LABS: ~HepC Num1 0.13 S/CO (0.00-0.79); ~Hepatitis C Antibody Nonreactive (Nonreactive)
[2021-12-14 06:26] LABS: MANUAL DIFF FLAG NO
[2021-12-14 06:29] LABS: Basophils Percent Auto 0.2 % (0-2); Eosinophils Absolute Auto 0.1 X10*3/uL (0.0-0.4); Eosinophils Percent Auto 0.6 % (0-4); Hematocrit 37.5 % (42.0-52.0); Hemoglobin 12.8 g/dl (14.0-18.0); Imm Gran Abs Auto 0.04 X10*3/uL (0.00-0.03); Imm Gran Pct Auto 0.3 % (0.0-0.4); Lymphocytes Absolute Auto 1.9 X10*3/uL (1.2-4.9); Lymphocytes Percent Auto 14.5 % (20-40); Mean Corpuscular HGB Conc 34.1 g/dl (31.0-36.0); Mean Corpuscular Hemoglobin 28.2 pg (27.0-33.0); Mean Corpuscular Volume 82.6 fL (80.0-98.0); Mean Platelet Volume 8.7 fL (9.4-12.4); Monocytes Absolute Auto 1.3 X10*3/uL (0.1-1.2); Monocytes Percent Auto 9.6 % (2-11); Neutrophils Absolute Auto 9.9 x10*3/uL (2.0-8.3); Neutrophils Percent Auto 74.8 % (45-73); Platelet Count 288 X10*3/uL (160-400); Red Blood Count 4.54 X10*6/uL (4.60-5.80); Red Cell Distribution Width 13.4 % (11.0-16.0); White Blood Count 13.3 X10*3/uL (4.8-10.8)
[2021-12-14 06:47] LABS: Anion Gap 16 (12-20); Blood Urea Nitrogen 52 mg/dL (9-16); Calcium 8.4 mg/dL (8.4-10.2); Carbon Dioxide 20 mmol/L (22-29); Chloride 102 mmol/L (96-108); Creatinine Clr Calc Pharmacy 16.6; Estimated Glomerular Filt Rate 9; Glucose Random 97 mg/dL (60-115); Potassium 4.4 mmol/L (3.3-5.1); Sodium 134 mmol/L (135-145)
[2021-12-14 06:51] LABS: Alanine Aminotransferase 259 U/L (0-40); Albumin Level 3.5 g/dL (3.5-5.0); Alkaline Phosphatase 57 U/L (39-117); Anion Gap 16 (12-20); Aspartate Amino Transferase 601 U/L (5-37); Bilirubin Total 0.9 mg/dL (0.0-1.0); Blood Urea Nitrogen 53 mg/dL (9-16); Calcium 8.4 mg/dL (8.4-10.2); Carbon Dioxide 20 mmol/L (22-29); Chloride 103 mmol/L (96-108); Creatinine Clr Calc Pharmacy 16.2; Estimated Glomerular Filt Rate 8; Glucose Fasting 97 mg/dL (60-99); Potassium 4.4 mmol/L (3.3-5.1); Sodium 135 mmol/L (135-145); Total Protein 6.2 g/dL (6.5-8.0)
[2021-12-14 06:53] LABS: INTERNATIONAL NORM RATIO 1.1 (0.9-1.1); Prothrombin Time 12.4 SEC (9.9-13.0)
[2021-12-14 07:21] VITALS: BP 135/86; PULSE 79; RESP 18; TEMP 36.9; O2SAT 98
[2021-12-14] MEDS: 0.9 % Sodium Chloride Flush 3 ML SYRINGE IVFLUSH (09:34)
[2021-12-14] MEDS: traMADoL HCL 50 MG TABLET PO ×3 (09:38→23:38)
[2021-12-14] MEDS: 0.9 % Sodium Chloride 1,000 ML 200 ML IVCONT (11:16)
--- NOTE | 2021-12-14 11:35 | P.CDIC_ITS ---
CDI Concurrent Query Documentation Clarification: PHYSICIAN'S DOCUMENTATION REQUEST Date of Query: 12/14/21 1138 Patient Name: Steve Bledsoe Admit Date: 12/12/21 Dear Doctor, A review of the medical record indicates additional documentation may be needed. Please review below and update the documentation accordingly. Clinical Indicators: Risk Factors/Clinical Indicators/Treatments Height and Weight nursing notes 12/13 - Obese Class II BMI 39.5 5' 6 in height If possible, please provide an associated diagnosis related to the abnormal BMI, such as: For a BMI >= > 35 * Overweight * Obesity * Due to excess calories * Drug induced * Due to other cause Or: * BMI is not significant * Other (please specify) * Unable to determine Use of terms such as suspected, likely, concern for, or probable (associated with a specific diagnosis that is being evaluated, monitored, or treated as if it exists) are acceptable and can be coded in the inpatient setting, when documented at the time of discharge. Thank you, Sasha James [facility], CDIS Extension: [phone] Please use your independent medical judgment in providing your response. THIS QUERY IS PART OF THE PERMANENT MEDICAL RECORD Provider Response: Other Other Diagnosis: BMI greater than 35 secondary to excess calories
--- NOTE | 2021-12-14 13:19 | P.PNIM_ITS ---
Subjective Subjective Date of Service: 12/14/21 Interval History: No acute issues overnight. Review of Systems Denies chest pain Denies shortness of breath Denies nausea vomiting diarrhea Denies fever chills Physical Exam Vital Signs: Vital Signs: Last Vital Signs Temp 98.4 F 12/14/21 07:21 Pulse 79 12/14/21 07:21 Resp 18 12/14/21 07:21 BP 135/86 12/14/21 07:21 Pulse Ox 98 12/14/21 07:21 BMI result Body Mass Index 39.5 Const: Other: Awake alert oriented x3 no acute distress Resp: Other: Clear to auscultation bilaterally no rales rhonchi wheezes Cardio: Other: No S4; positive S1-S2; no murmurs rubs or gallops GI: Other: Soft nontender nondistended with normoactive bowel sounds Extrem: Other: No edema bilaterally Objective Data Active Medications Enoxaparin Sodium (Enoxaparin Sodium 40 Mg/0.4 Ml Syringe) 40 mg SUBCUT Q24H [facility] Last Admin: 12/13/21 17:22 Dose: 40 mg Documented by: MITUL Sodium Chloride (Ns) 1,000 mls @ 200 mls/hr IVCONT .Q5H [facility] Stop: 12/17/21 10:44 Last Admin: 12/14/21 11:16 Dose: 200 mls/hr Documented by: MELISA Sodium Bicarbonate 150 meq/ (Dextrose) 1,000 mls @ 100 mls/hr IV .Q10H [facility] Ondansetron HCl (Ondansetron Hcl 4 Mg/2 Ml Vial) 4 mg IVPUSH Q8H PRN PRN Reason: Nausea and Vomiting Pharmacy Consult (Consult Rx Perform Med Rec) 1 each MISCELLANE ONCE PRN PRN Reason: Consult order Sodium Chloride (0.9 % Sodium Chloride Flush 3 Ml Syringe) 3 ml IVFLUSH QSHIFT [facility] Last Admin: 12/14/21 09:34 Dose: 3 ml Documented by: MELISA Tramadol HCl (Tramadol Hcl 50 Mg Tablet) 50 mg PO Q6H PRN PRN Reason: Pain, Severe (Pain Scale 7-10) Last Admin: 12/14/21 09:38 Dose: 50 mg Documented by: MELISA Labs CBC & Chem 7: 12/14/21 06:20 12/14/21 06:20 Labs: Laboratory Results - last 24 hr 12/12/21 12/12/21 12/12/21 12:59 13:06 13:56 MCV MCH MCHC RDW Plt Count MPV Immature Gran % (Auto) Neut % (Auto) Lymph % (Auto) [place] % (Auto) Eos % (Auto) Baso % (Auto) Lymph # (Auto) [place] # (Auto) Eos # (Auto) Baso # (Auto) Abs Immat Gran (auto) Absolute Neuts (auto) Absolute Nucleated RBC Nucleated RBC % (auto) PT INR VBG pH 7.34 VBG pCO2 35 VBG pO2 116 VBG HCO3 19 L VBG O2 Saturation 99.0 VBG Base Excess -5.4 Carboxyhemoglobin % 4.9 Anion Gap Estim Creat Clear Calc Estimated GFR Random Glucose Fasting Glucose Calcium Total Bilirubin AST ALT Alkaline Phosphatase Total Creatine Kinase Total Protein Albumin Ur Random Sodium Urine Creatinine Hep Bs Antigen Negative Hep Bs Antibody NONREACTIVE Hep B Core Total Ab Nonreactive Hepatitis C Ab (EIA) Nonreactive 12/13/21 12/14/21 12/14/21 17:34 06:20 06:20 MCV MCH MCHC RDW Plt Count MPV Immature Gran % (Auto) Neut % (Auto) Lymph % (Auto) [place] % (Auto) Eos % (Auto) Baso % (Auto) Lymph # (Auto) [place] # (Auto) Eos # (Auto) Baso # (Auto) Abs Immat Gran (auto) Absolute Neuts (auto) Absolute Nucleated RBC Nucleated RBC % (auto) PT 12.4 INR 1.1 VBG pH VBG pCO2 VBG pO2 VBG HCO3 VBG O2 Saturation VBG Base Excess Carboxyhemoglobin % Anion Gap 16 Estim Creat Clear Calc 16.6 Estimated GFR 9 Random Glucose 97 Fasting Glucose Calcium 8.4 Total Bilirubin AST ALT Alkaline Phosphatase Total Creatine Kinase Total Protein Albumin Ur Random Sodium 24.0 Urine Creatinine 332.27 Hep Bs Antigen Hep Bs Antibody Hep B Core Total Ab Hepatitis C Ab (EIA) 12/14/21 12/14/21 06:20 06:20 MCV 82.6 MCH 28.2 MCHC 34.1 RDW 13.4 Plt Count 288 MPV 8.7 L Immature Gran % (Auto) 0.3 Neut % (Auto) 74.8 H Lymph % (Auto) 14.5 L [place] % (Auto) 9.6 Eos % (Auto) 0.6 Baso % (Auto) 0.2 Lymph # (Auto) 1.9 [place] # (Auto) 1.3 H Eos # (Auto) 0.1 Baso # (Auto) 0.0 Abs Immat Gran (auto) 0.04 H Absolute Neuts (auto) 9.9 H Absolute Nucleated RBC 0.000 Nucleated RBC % (auto) 0.0 PT INR VBG pH VBG pCO2 VBG pO2 VBG HCO3 VBG O2 Saturation VBG Base Excess Carboxyhemoglobin % Anion Gap 16 Estim Creat Clear Calc 16.2 Estimated GFR 8 Random Glucose Fasting Glucose 97 Calcium 8.4 Total Bilirubin 0.9 AST 601 H ALT 259 H Alkaline Phosphatase 57 Total Creatine Kinase 08987 H Total Protein 6.2 L Albumin 3.5 Ur Random Sodium Urine Creatinine Hep Bs Antigen Hep Bs Antibody Hep B Core Total Ab Hepatitis C Ab (EIA) Assessment and Plan (1) Acute kidney injury: Status: Acute (2) Rhabdomyolysis: Status: Acute (3) Elevated LFTs: Status: Acute Plan 36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 Noted to have acute renal injury along with transaminitis. Admits to cocaine use night prior to admission 1AKI/rhabdomyolysis -CKs down to 36k -volume repletion NSS @200/hr/Bicarb gtt as per renal -check renal/divalent in am 2. Transaminitis -follow response to fluids -hepatitis panel negative; awaiting Hep A -US consistant with DWAYNE Still FUll Code Will require 1-2 midnights for treatment of transaminitis and acute kidney injury Quality Stroke Does the patient have a stroke diagnosis?: No VTE Prior VTE?: No VTE Risk Level:: Medical - moderate - high VTE Device Contraindication: Treatment Not Indicated VTE Drug Contraindication: N/A - Med Ordered
[2021-12-14] MEDS: Sodium Bicarbonate 8.4% 150 MEQ in Dextrose 5 % 850 ML 100 MEQ IV ×2 (13:20→22:53)
--- NOTE | 2021-12-14 13:59 | CONS_ITS ---
DATE OF SERVICE: 12/13/2021 REASON FOR CONSULTATION: Consult requested by Dr. Gary Perera to evaluate and help in management of patient with severe renal insufficiency. HISTORY OF PRESENT ILLNESS: The patient is a 36-year-old male, who is mostly Stateless speaking and is a poor historian, who had dizziness and passed out and woke up sometime later. His car was running. He did use large amount of cocaine the previous night according to the history. He has had depression episodes. In the emergency room, patient was evaluated and had a creatinine of 3.35 and a white count of 18,000. He had a carbon monoxide level of 4.9 and the patient is a nonsmoker. He had elevated CPK level in the 70,000 and admitting diagnosis was acute kidney injury in the setting of rhabdomyolysis. Initially, there was no urine tox screen, but I advised medical team to get a urine tox screen. He is cocaine positive as well. He is resting in the bed at the present and complaining of right thigh pain. There is no dysuria, urgency of urination, or frequent urination. Total urine output has been around 300 mL. He was not acidotic and his bicarb level was 22 when he came in and he was placed on normal saline. REVIEW OF SYSTEMS: Patient denies any chest pain, shortness of breath, nausea, vomiting, diarrhea, fever, chills. He does have right thigh pain as mentioned before. ALLERGIES: PATIENT HAS NO KNOWN DRUG ALLERGIES. MEDICATIONS: None significant. PAST MEDICAL HISTORY: History of for depression and cocaine abuse. FAMILY HISTORY: No major renal disease. PERSONAL/SOCIAL HISTORY: Patient does use cocaine. PHYSICAL EXAMINATION: GENERAL: Patient is resting in the step-down unit bed. VITAL SIGNS: Blood pressure was 137/63, pulse 63, afebrile. HEENT: Pupils equal bilaterally to light. No jugular venous distention is noted. NECK: Supple. No thyromegaly is noted. Mucosa moist. There is no scleral icterus or conjunctival congestion. CARDIOVASCULAR SYSTEM: S1, S2 without rub. RESPIRATORY: Air entry decreased in the bases. ABDOMEN: Soft. Nontender. No guarding. No rigidity. Bowel sounds normal. EXTREMITIES: No edema. There is no peripheral cyanosis or clubbing. NEURO: Essentially nonfocal. Right thigh tenderness was noted. LABORATORY DATA: Labs done today: Sodium 136, potassium 4.3, chloride 103, CO2 of 22, anion gap 15, BUN 40, creatinine 5.20, estimated GFR is 13, glucose 133, calcium 8.5, total bilirubin 0.8. AST and ALT were elevated. CPK 51,612. Albumin 3.5. WBC 13.7, hemoglobin 14, hematocrit 42.8, platelets 308. Urinalysis shows yellow urine, hazy, specific gravity was more than 1.030, protein 3+, glucose negative, ketone 5, wbcs 3+. Rbcs and wbcs were normal on microscopy. Random urine sodium was 127. Urine tox screen positive for cocaine, fentanyl, opiates. COVID testing was negative. IMPRESSION: 1. A 36-year-old male with acute kidney injury. 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 He was also using cocaine, which can also cause severe renal vasoconstriction with worsening renal function. It is unclear if he was on any NSAIDs. Clinically, on presentation initially he was prerenal. The patient did have CT scan of the abdomen and pelvis without contrast, which did not show any hydronephrosis. Based on urinalysis, I doubt patient has acute GN/interstitial disease. His baseline creatinine was close to normal. 2. Rhabdomyolysis in the setting of cocaine use and muscle compression on the right side in the setting of fall with muscle injury. 3. Transaminitis, which is being worked up. 4. Cocaine abuse. RECOMMENDATIONS: At this juncture, patient clinically looks prerenal. His rhabdo is improved with his CPK dropping from 70,000 to 50,000. I agree with continuation of aggressive IV fluids with normal saline at 200 mL/h with monitoring his urine output closely. We need to check his and electrolytes with renal function on a daily basis. He is not acidotic or hyperkalemic and there is no indication for renal replacement therapy at this juncture. He needs counseling regarding cocaine use. I also recommend avoiding excessive pressure on the right thigh area and he might benefit from air mattress and staying away from that side in terms of putting pressure on his muscles. Thank you for allowing me to participate in medical management of the patient. MD RIANA Sanford/MODL / [id number]
--- NOTE | 2021-12-14 14:09 | CONS_ITS ---
DATE OF SERVICE: 12/14/2021 REASON FOR CONSULTATION: I was asked to see patient to assist in evaluation and management of patient's severe acute kidney injury as reflected by creatinine that was 3.1 on December 12, 5.2 yesterday and this morning's up to 7.42 in the setting of relatively severe rhabdomyolysis and cocaine use with CPK that was originally 77,000, it has come down this morning to 36,000. He has been getting a lot of IV fluids and tells me his urine output has been picking up. For some reasons, IV fluids stopped around 4 a.m. this morning. HISTORY OF PRESENT ILLNESS: In summary, the patient is a 36-year-old gentleman, who presented to the hospital on after he became faint and almost passed out. He admits to doing cocaine, he snorts it. He denies any other drug use, although the tox screen came back for being positive for fentanyl as well. He denies taking any NSAIDs. He does note his urine output had been poor and the urine was very dark in color. He denies any dysuria, fever, sweats, or chills. His past medical history is relatively unremarkable other than the polysubstance abuse. He is on no medications. Denies taking NSAIDs. FAMILY HISTORY: Noncontributory. No kidney problems. REVIEW OF SYSTEMS: As noted above. Overall, he is feeling better since he came to the hospital. He does tell me that he is having some leg pains. PHYSICAL EXAMINATION: VITAL SIGNS: Blood pressure 135/86 with a heart rate in the 80s. He is afebrile. I's and O's, unclear how much urine he is making. HEAD: Atraumatic and normocephalic. NECK: Supple. Mucous membranes are moist. There is no JVD. LUNGS: Breath sounds bilaterally. CARDIAC: Regular rate and rhythm. ABDOMEN: Soft, nontender. Good bowel sounds. EXTREMITIES: Shows no edema. LABORATORY DATA: From this morning show sodium 135, potassium 4.4, chloride 103, bicarb 20, BUN 53, and creatinine 7.42. AST and ALT were 601 and 259 respectively. CPK is 36,000, it was 77,000 on admission. Albumin 3.5. His urinalysis was concentrated at 1.030 with 3+ protein and 3+ blood by dipstick with no rbc's per high-powered field, consistent with a lot of myoglobin in the urine. Urine sodium was 24. Urine creatinine was 332. His tox screen was positive for opiates, fentanyl, and cocaine. He had a CT of the abdomen and pelvis without contrast on admission, which was unremarkable. IMPRESSION: ACUTE KIDNEY INJURY IN THE SETTING OF SEVERE RHABDOMYOLYSIS AND COCAINE USE. 1. Acute kidney injury. This is most consistent with a combination of rhabdomyolysis associated myoglobin pigment nephropathy, acute tubular necrosis. Most likely, the cocaine provides a significant added impact in terms of the acute kidney injury. Cocaine causes vasoconstriction and will accentuate the degree of ischemia and toxicity to the tubules. Our hope is that with continue IV hydration, his renal function plateau and we can avoid dialysis. Other considerations would include cocaine causing a renal vasculitis. Occasionally cocaine is mixed with levamisole which can be associated with an ANCA associated vasculitis. Typically, there is skin manifestations and kidney involvement. He has no skin manifestations and his UA seems bland making this unlikely. Nonetheless, we will order an ANCA level on him. 2. Rhabdomyolysis. Cocaine itself can cause rhabdomyolysis by cause ischemia of the muscle bellies. Presumably, this is the culprit here. The good news is that his CPKs continue to come down. 3. Polysubstance abuse. SUGGESTIONS: At this time include continue aggressive IV hydration and we will try and alkalinize his urine by giving him IV sodium bicarb. His urine analysis pH was 5.5, would likely be above 6 as this may provide some added benefit in terms of recovery from rhabdo, myoglobin ATN. We will follow his renal function, urine output closely. Hopefully, we can avoid dialysis. We will follow the patient closely with the team. MD DARY Santiago/BRETT / [id number]
--- NOTE | 2021-12-14 14:35 | MHC.CM.PN ---
nurse insurance case manager note electronic medical record reviewed . along with case discussed with staff nurse and [facility] . met with patient with tunisian interperter. he reports he lives with his , he is independent in all adls and mobility without any devices. he is employed , has history of crack cocaine and prescription opiod use and depression, i checked with the care team they reported they will bnot be seeing patient until he is evaluated by psych and medically cleared discharge plan return home onces medically stable 2. crisis cons has been ordered awaiting assessment 3.care team consult (i was told they will,not come until seen by psych and medically cleafed for discharge before they will come. pcp erna badillo [facility]
[2021-12-14 15:29] VITALS: BP 147/89; PULSE 70; RESP 18; TEMP 36.1; O2SAT 98
[2021-12-14] MEDS: Enoxaparin Sodium 40 MG/0.4 ML SYRINGE SUBCUT (16:49)
[2021-12-14 19:13] VITALS: BP 148/93; PULSE 76; RESP 18; TEMP 36.6; O2SAT 100
--- NOTE | 2021-12-14 19:40 | PC.NURSE ---
notified via phone by dr evans. decreas ns to 100ml/h and keep running sodium bicarb at 100 ml/h. fluids adjusted per order
[2021-12-14 21:00] LABS: Anion Gap 14 (12-20); Blood Urea Nitrogen 60 mg/dL (9-16); Carbon Dioxide 26 mmol/L (22-29); Chloride 100 mmol/L (96-108); Estimated Glomerular Filt Rate 7; Potassium 3.6 mmol/L (3.3-5.1); Sodium 136 mmol/L (135-145)
--- NOTE | 2021-12-14 21:17 | MHC.PIE ---
p; cr8.[address] ghotra notified e;will cont to monitor
[2021-12-14] MEDS: 0.9 % Sodium Chloride 1,000 ML 100 ML IVCONT (22:53)
[2021-12-14 23:51] VITALS: BP 134/84; PULSE 69; RESP 18; TEMP 36.5; O2SAT 98
[2021-12-15 03:28] VITALS: BP 120/68; PULSE 69; RESP 17; TEMP 37.1; O2SAT 97
--- NOTE | 2021-12-15 05:32 | PC.NURSE ---
dc sodium bicarb fluid now. keep ns at 100ml/h. pt to be npo for now till further notice, via telephone by dr evans. pt informed via Dominican speaking on npo, pt verbalized understanding
[2021-12-15 05:55] LABS: MANUAL DIFF FLAG NO
[2021-12-15 05:58] LABS: Basophils Percent Auto 0.3 % (0-2); Eosinophils Absolute Auto 0.2 X10*3/uL (0.0-0.4); Eosinophils Percent Auto 1.4 % (0-4); Hematocrit 36.1 % (42.0-52.0); Hemoglobin 12.3 g/dl (14.0-18.0); Imm Gran Abs Auto 0.04 X10*3/uL (0.00-0.03); Imm Gran Pct Auto 0.3 % (0.0-0.4); Lymphocytes Absolute Auto 1.9 X10*3/uL (1.2-4.9); Lymphocytes Percent Auto 16.1 % (20-40); Mean Corpuscular HGB Conc 34.1 g/dl (31.0-36.0); Mean Corpuscular Hemoglobin 27.8 pg (27.0-33.0); Mean Corpuscular Volume 81.7 fL (80.0-98.0); Monocytes Absolute Auto 1.1 X10*3/uL (0.1-1.2); Monocytes Percent Auto 9.7 % (2-11); Neutrophils Absolute Auto 8.5 x10*3/uL (2.0-8.3); Neutrophils Percent Auto 72.2 % (45-73); Platelet Count 272 X10*3/uL (160-400); Red Blood Count 4.42 X10*6/uL (4.60-5.80); Red Cell Distribution Width 13.1 % (11.0-16.0); White Blood Count 11.8 X10*3/uL (4.8-10.8)
[2021-12-15 06:26] LABS: Alanine Aminotransferase 196 U/L (0-40); Albumin Level 3.2 g/dL (3.5-5.0); Alkaline Phosphatase 52 U/L (39-117); Anion Gap 15 (12-20); Aspartate Amino Transferase 303 U/L (5-37); Bilirubin Total 0.6 mg/dL (0.0-1.0); Blood Urea Nitrogen 64 mg/dL (9-16); Carbon Dioxide 26 mmol/L (22-29); Chloride 99 mmol/L (96-108); Estimated Glomerular Filt Rate 7; Glucose Fasting 110 mg/dL (60-99); Potassium 3.8 mmol/L (3.3-5.1); Sodium 136 mmol/L (135-145); Total Protein 5.6 g/dL (6.5-8.0)
--- NOTE | 2021-12-15 06:30 | MHC.PIE ---
p; cr 9.24 i; dr ghotra notified e; will cont to monitor
[2021-12-15 08:00] VITALS: BP 149/80; PULSE 67; RESP 18; TEMP 37.2; O2SAT 97
[2021-12-15] MEDS: traMADoL HCL 50 MG TABLET PO ×2 (09:10→22:53)
[2021-12-15 09:47] LABS: Phosphorus 6.4 mg/dL (2.7-4.5)
[2021-12-15] MEDS: Sodium Bicarbonate 8.4% 150 MEQ in Dextrose 5 % 850 ML 100 MEQ IV (10:23)
--- NOTE | 2021-12-15 10:49 | P.PNNP_ITS ---
Subjective Subjective Date of Service: 12/15/21 Principal diagnosis: talya, rhabdo Interval history: Seen and examiend, evnts noted Physical Exam Vital Signs: Vital Signs: Last Vital Signs Temp 98.9 F 12/15/21 08:00 Pulse 67 12/15/21 08:00 Resp 18 12/15/21 08:00 BP 149/80 H 12/15/21 08:00 Pulse Ox 97 12/15/21 08:00 BMI result Body Mass Index 39.5 Const: Other: Awake alert oriented x3 no acute distress General: cooperative, no acute distress, alert and awake Nutritional Appearance: well nourished Orientation/consciousness: patient oriented x3 Limitations: no limitations HEENT: Head: Yes normal to inspection and Yes atraumatic Ears: hearing grossly normal bilaterally and external ears normal General nose exam: Normal external nose present, no nasal discharge noted and no epistaxis Face and sinus: Yes normal facial exam, No abrasion and No laceration Mouth: Normal oral and palatal mucosa present, no drooling and no muffled voice Eyes: General: appearance normal, both eyes and all related structures Periorbital: periorbital findings normal Eyelids: Yes eyelids normal Conjunctivae: conjunctivae normal Pupils: Equal, round and reactive pupils present EOM: EOMs intact bilaterally Neck: Neck: Yes normal visual inspection, Yes full ROM and Yes no lymphadenopathy Chest: Chest palpation & inspection: normal inspection of the chest Resp: Other: Clear to auscultation bilaterally no rales rhonchi wheezes Effort & Inspection: normal respiratory effort and able to speak in complete sentences Auscultation: clear to auscultation bilaterally Cardio: Other: No S4; positive S1-S2; no murmurs rubs or gallops Rate: regular rate Rhythm: regular rhythm GI: Other: Soft nontender nondistended with normoactive bowel sounds Inspection: Yes normal to inspection Skin: Other: mild bruising to the forehead Neuro: General: patient oriented x3 and moves all extremities Cranial nerves: Yes Equal, round and reactive pupils present Cognition (Neuro): normal cognition Motor exam (neuro): 5/5 motor strength present throughout Sensory Exam: Normal double simultaneous stimulation for sensation Coordination: [id number] test normal Extrem: Other: No edema bilaterally General: Yes normal to inspection, Yes full ROM and Yes capillary refill normal Psych: Appearance: grossly normal Mental Status: mental status grossly normal Affect: normal affect Attitude: cooperative Thought process: Normal thought process present Thought content: Normal thought content p resent Insight: Good insight present (Psych) Objective Data Labs CBC & Chem 7: 12/15/21 05:42 12/15/21 05:42 Labs: Laboratory Results - last 24 hr 12/14/21 12/15/21 12/15/21 19:55 05:42 05:42 WBC 11.8 H RBC 4.42 L Hgb 12.3 L Hct 36.1 L MCV 81.7 MCH 27.8 MCHC 34.1 RDW 13.1 Plt Count 272 MPV 9.0 L Immature Gran % (Auto) 0.3 Neut % (Auto) 72.2 Lymph % (Auto) 16.1 L [place] % (Auto) 9.7 Eos % (Auto) 1.4 Baso % (Auto) 0.3 Lymph # (Auto) 1.9 [place] # (Auto) 1.1 Eos # (Auto) 0.2 Baso # (Auto) 0.0 Abs Immat Gran (auto) 0.04 H Absolute Neuts (auto) 8.5 H Absolute Nucleated RBC 0.000 Nucleated RBC % (auto) 0.0 Sodium 136 136 Potassium 3.6 3.8 Chloride 100 99 Carbon Dioxide 26 26 Anion Gap 14 15 BUN 60 H 64 H Creatinine 8.60 H* 9.24 H* Estim Creat Clear Calc 14.0 13.0 Estimated GFR 7 7 Fasting Glucose 110 H Calcium 8.0 L Phosphorus 6.4 H Total Bilirubin 0.6 AST 303 H ALT 196 H Alkaline Phosphatase 52 Total Creatine Kinase 30183 H D Total Protein 5.6 L Albumin 3.2 L Procedures Date of Service Date of Service: 12/15/21 Assessment & Plan Assessment and plan (1) Acute kidney injury: Status: Acute (2) Rhabdomyolysis: Status: Acute (3) Elevated LFTs: Status: Acute Plan 1.Non-Oliguric TALYA: c/w Rhabdo in comb with cocaine assoc vasocnstriction which incr ATN injury; doubt renal vasculits from cocaine ( Levamisole) contince incr Scr but no indication for HD yet 2. Rhabdo: CPk decr 3. Cocaine use 4. Vol status: noevidof hypervol REC: cont aggressive IVF ( goal is to get UOP > 100-2000/hr) as we monitor for hypervol; check Urine pH ( I reordered); cont IV NaHCO3; no indication for HD yet will follow alonso with team and hope to avoid HD Time Spent With Patient Time: Total time spent is greater than 50% in coordination of care (as documented) at patient's floor/unit and/or counseling patient: Progress Note: Quality Stroke Does the patient have a stroke diagnosis?: No
[2021-12-15 11:36] VITALS: BP 154/81; PULSE 61; RESP 18; TEMP 36.1; O2SAT 100
--- NOTE | 2021-12-15 11:51 | MHC.RECOVRN ---
Briefly met with pt in 369 to assess for withdrawal symptoms after consult placed to CARE Team for fentanyl and cocaine use. Pt in bed, resting, upon approach. Pt denies current withdrawal symptoms. Full consultation to follow. Discussed with Sera Amaro APRN.
--- NOTE | 2021-12-15 12:34 | P.CDIC_ITS ---
CDI Concurrent Query Documentation Clarification: PHYSICIAN'S DOCUMENTATION REQUEST Date of Query: 12/15/21 1235 Patient Name: Steve Bledsoe Admit Date: 12/12/21 Dear Doctor, A review of the medical record indicates additional documentation may be needed. Please review below and update the documentation accordingly. Clinical Indicators: Risk Factors/Clinical Indicators/Treatments Nephrology note 12/14 - Rhabdo improved. CPK dropped 70,000 to 50,000 Rhabodmyolysis in the setting of cocaine and muscle compression on the right side in the setting of fall with muscle injury. Based on the above, could you clarify in the Progress Notes the appropriate diagnosis, if significant, that supports the above abnormalities and additional evaluation, monitoring, and/or treatment rendered: * Rhabdomyolysis * Traumatic Rhabdomyolysis * Non-traumatic Rhabdomyolysis * Other (please specify) * Unable to determine Use of terms such as suspected, likely, concern for, or probable (associated with a specific diagnosis that is being evaluated, monitored, or treated as if it exists) are acceptable and can be coded in the inpatient setting, when documented at the time of discharge. Thank you, Sasha James [facility], CDIS Extension: [phone] Please use your independent medical judgment in providing your response. THIS QUERY IS PART OF THE PERMANENT MEDICAL RECORD Provider Response: Other Other Diagnosis: Rhabdomyolysis secondary to cocaine use, thus non-traumatic
--- NOTE | 2021-12-15 12:50 | HO.PM.IMPN ---
Subjective Subjective Date of Service: 12/15/21 Interval History: This history was taken in Bengali from the patient. urinating no withdrawal symptoms no pain Review of Systems Review of Systems: Yes all other systems are reviewed and are negative Physical Exam Vital Signs: Vital Signs: Last Vital Signs Temp 96.9 F 12/15/21 11:36 Pulse 61 12/15/21 11:36 Resp 18 12/15/21 11:36 BP 154/81 H 12/15/21 11:36 Pulse Ox 100 12/15/21 11:36 BMI result Body Mass Index 39.5 Gen: in no acute distress HEENT: sclera anicteric, moist mucus membranes Neck: supple Lungs: clear to auscultation bilaterally Heart: regular rate and rhythm, no murmurs Abd: soft, non-tender, non-distended Ext: no edema Skin: warm/well-perfused Neuro: alert and oriented x3, no focal findings Psych: appropriate affect Objective Data Active Medications Enoxaparin Sodium (Enoxaparin Sodium 40 Mg/0.4 Ml Syringe) 40 mg SUBCUT Q24H [facility] Last Admin: 12/14/21 16:49 Dose: 40 mg Documented by: MELISA Sodium Bicarbonate 150 meq/ (Dextrose) 1,000 mls @ 100 mls/hr IV .Q10H [facility] Last Admin: 12/15/21 10:23 Dose: 100 mls/hr Documented by: MELISA Ondansetron HCl (Ondansetron Hcl 4 Mg/2 Ml Vial) 4 mg IVPUSH Q8H PRN PRN Reason: Nausea and Vomiting Pharmacy Consult (Consult Rx Perform Med Rec) 1 each MISCELLANE ONCE PRN PRN Reason: Consult order Sodium Chloride (0.9 % Sodium Chloride Flush 3 Ml Syringe) 3 ml IVFLUSH QSHIFT [facility] Last Admin: 12/15/21 09:10 Dose: Not Given Documented by: MELISA Non-Admin Reason: IV Running Tramadol HCl (Tramadol Hcl 50 Mg Tablet) 50 mg PO Q6H PRN PRN Reason: Pain, Severe (Pain Scale 7-10) Last Admin: 12/15/21 09:10 Dose: 50 mg Documented by: MELISA Labs CBC & Chem 7: 12/15/21 05:42 12/15/21 05:42 Labs: Laboratory Results - last 24 hr 12/14/21 12/15/21 12/15/21 19:55 05:42 05:42 MCV 81.7 MCH 27.8 MCHC 34.1 RDW 13.1 Plt Count 272 MPV 9.0 L Immature Gran % (Auto) 0.3 Neut % (Auto) 72.2 Lymph % (Auto) 16.1 L [place] % (Auto) 9.7 Eos % (Auto) 1.4 Baso % (Auto) 0.3 Lymph # (Auto) 1.9 [place] # (Auto) 1.1 Eos # (Auto) 0.2 Baso # (Auto) 0.0 Abs Immat Gran (auto) 0.04 H Absolute Neuts (auto) 8.5 H Absolute Nucleated RBC 0.000 Nucleated RBC % (auto) 0.0 Anion Gap 14 15 Estim Creat Clear Calc 14.0 13.0 Estimated GFR 7 7 Fasting Glucose 110 H Calcium 8.0 L Phosphorus 6.4 H Total Bilirubin 0.6 AST 303 H ALT 196 H Alkaline Phosphatase 52 Total Creatine Kinase 21415 H D Total Protein 5.6 L Albumin 3.2 L Assessment and Plan (1) Rhabdomyolysis: Status: Acute (2) Elevated LFTs: Status: Acute Plan hospital d#4 36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 noted to have TALYA/rhabdomyolysis. admitted to cocaine use night prior to admission # TALYA # non-traumatic rhabdomyolysis - due to cocaine-induced vasoconstriction + pigment nephropathy. Nephrology following. continue IV bicarbonate drip and check urine pH. # elevated LFTs - due to rhabdomyolysis - background RICE on US # cocaine abuse - opioid use disorder - CARE Team consult # VTE ppx - UFH In my clinical judgment, the patient requires continued hospitalization for the following reasons: worsening renal injury + rhabdomyolysis requiring IV fluids + lab monitoring Quality Stroke Does the patient have a stroke diagnosis?: No VTE Prior VTE?: No VTE Risk Level:: Medical - moderate - high VTE Device Contraindication: Treatment Not Indicated VTE Drug Contraindication: N/A - Med Ordered
[2021-12-15] MEDS: Heparin Sodium,Porcine 5,000 UNIT/ML VIAL 5000 UNIT SUBCUT ×2 (14:04→22:54)
[2021-12-15 15:46] LABS: Appearance Urine CLEAR; Color Urine YELLOW; Glucose Urine UA NEG (NEG); Leukocyte Esterase Urine NEG (NEG); Nitrite Urine NEG (NEG); PH 5.5 (5.0-8.0); Urine Blood 3+ (NEG); Urine Ketones NEG (NEG); Urine Protein 1+ MG/DL (NEG-TRACE)
[2021-12-15 15:48] VITALS: BP 148/82; PULSE 64; RESP 18; TEMP 36.3; O2SAT 98
[2021-12-15 16:02] LABS: Amorphous Sediment Urine 1+ /LPF; RBC Urine 0-2 /HPF (0); Renal Epithelial Cells Urine TRACE /LPF; Squamous Epithelial Cell Urine TRACE /LPF
--- NOTE | 2021-12-15 16:03 | MHC.CM.PN ---
NURSE CASE MANAGEMENT NOTE ELECTRONIC MEDICAL RECORD REVIEWED AND CASE DISCUSSED WITH HOSPITALSIT , PER DOCUMENTATION , PATIENT WAS ADMITTED WITH (RHABDOMYLOSIS ELEVATED LFTS, SYNCOPAL EPISODE ALSO FOUND TO HAVE TALYA PATIENT ADMITTED TO USING COCAINE THE NIGHT BEFORE, RENAL IS FOLLOWING CONTINUE SODIUM BICARBONATE DRIP AND MONITORING ALL LASB WITH EMPHASIS ON RENAL AND LFTS, CARE TEASM WAS CONSULTEDF FOR OPIOD AD COCAINE ABUSE . DISCHARGE PLAN - HOME WITH CARE TEAMS RECOMENDATIONDS FOR SUBSTANCE ABUSE AND POSSIBLE MENTAL HEALTH COUNSELING TRANSPORT
[2021-12-15 19:13] VITALS: BP 156/89; PULSE 65; RESP 17; TEMP 36.5; O2SAT 98
[2021-12-15] MEDS: 0.9 % Sodium Chloride 1,000 ML 125 ML IVCONT (22:56)
[2021-12-15 23:36] VITALS: BP 141/75; PULSE 64; RESP 16; TEMP 37.4; O2SAT 98
[2021-12-16] MEDS: Sodium Bicarbonate 8.4% 150 MEQ in Dextrose 5 % 850 ML 100 MEQ IV (00:55)
[2021-12-16 03:27] VITALS: BP 137/74; PULSE 66; RESP 14; TEMP 36.7; O2SAT 99
[2021-12-16 05:09] LABS: Hepatitis A Antibody IgM 0.22 Index (0-0.79); ~Hepatitis A Antibody IgM Nonreactive (Nonreactive)
[2021-12-16] MEDS: Heparin Sodium,Porcine 5,000 UNIT/ML VIAL 5000 UNIT SUBCUT ×3 (05:12→20:00)
[2021-12-16] MEDS: traMADoL HCL 50 MG TABLET PO ×3 (05:13→18:01)
[2021-12-16 05:52] LABS: MANUAL DIFF FLAG NO
[2021-12-16 05:55] LABS: Basophils Percent Auto 0.2 % (0-2); Eosinophils Absolute Auto 0.2 X10*3/uL (0.0-0.4); Hematocrit 38.2 % (42.0-52.0); Hemoglobin 13.2 g/dl (14.0-18.0); Imm Gran Abs Auto 0.04 X10*3/uL (0.00-0.03); Imm Gran Pct Auto 0.3 % (0.0-0.4); Lymphocytes Absolute Auto 1.8 X10*3/uL (1.2-4.9); Lymphocytes Percent Auto 15.3 % (20-40); Mean Corpuscular HGB Conc 34.6 g/dl (31.0-36.0); Mean Corpuscular Hemoglobin 28.3 pg (27.0-33.0); Monocytes Absolute Auto 1.2 X10*3/uL (0.1-1.2); Neutrophils Absolute Auto 8.5 x10*3/uL (2.0-8.3); Neutrophils Percent Auto 72.2 % (45-73); Platelet Count 306 X10*3/uL (160-400); Red Blood Count 4.66 X10*6/uL (4.60-5.80); Red Cell Distribution Width 13.2 % (11.0-16.0); White Blood Count 11.8 X10*3/uL (4.8-10.8)
[2021-12-16 06:15] LABS: Alanine Aminotransferase 155 U/L (0-40); Albumin Level 3.1 g/dL (3.5-5.0); Alkaline Phosphatase 49 U/L (39-117); Anion Gap 16 (12-20); Aspartate Amino Transferase 189 U/L (5-37); Bilirubin Total 0.7 mg/dL (0.0-1.0); Blood Urea Nitrogen 68 mg/dL (9-16); Calcium 8.3 mg/dL (8.4-10.2); Carbon Dioxide 29 mmol/L (22-29); Chloride 96 mmol/L (96-108); Creatinine Clr Calc Pharmacy 11.5; Estimated Glomerular Filt Rate 6; Glucose Fasting 103 mg/dL (60-99); Potassium 3.9 mmol/L (3.3-5.1); Sodium 137 mmol/L (135-145); Total Protein 5.5 g/dL (6.5-8.0)
[2021-12-16 07:51] VITALS: BP 160/93; PULSE 59; RESP 18; TEMP 36.5; O2SAT 97
[2021-12-16] MEDS: 0.9 % Sodium Chloride 1,000 ML 125 ML IVCONT ×2 (09:20→18:03)
--- NOTE | 2021-12-16 10:21 | HO.PM.IMPN ---
Subjective Subjective Date of Service: 12/16/21 Interval History: This history was taken in Urdu from the patient. some leg cramping; otherwise no complaints Review of Systems Review of Systems: Yes all other systems are reviewed and are negative Physical Exam Vital Signs: Vital Signs: Last Vital Signs Temp 97.7 F 12/16/21 07:51 Pulse 59 12/16/21 07:51 Resp 18 12/16/21 07:51 BP 160/93 H 12/16/21 07:51 Pulse Ox 97 12/16/21 07:51 BMI result Body Mass Index 39.5 Gen: in no acute distress HEENT: sclera anicteric, moist mucus membranes Neck: supple Lungs: clear to auscultation bilaterally Heart: regular rate and rhythm, no murmurs, obese Abd: soft, non-tender, non-distended Ext: no edema Skin: warm/well-perfused Neuro: alert and oriented x3, no focal findings Psych: appropriate affect Objective Data Active Medications Heparin Sodium (Porcine) (Heparin Sodium,Porcine 5,000 Unit/Ml Vial) 5,000 unit SUBCUT Q8H [facility] Last Admin: 12/16/21 05:12 Dose: 5,000 unit Documented by: NUBIA Sodium Chloride (Ns) 1,000 mls @ 125 mls/hr IVCONT .Q8H [facility] Last Admin: 12/16/21 09:20 Dose: 125 mls/hr Documented by: LUCIE Ondansetron HCl (Ondansetron Hcl 4 Mg/2 Ml Vial) 4 mg IVPUSH Q8H PRN PRN Reason: Nausea and Vomiting Pharmacy Consult (Consult Rx Perform Med Rec) 1 each MISCELLANE ONCE PRN PRN Reason: Consult order Sodium Chloride (0.9 % Sodium Chloride Flush 3 Ml Syringe) 3 ml IVFLUSH QSHIFT [facility] Last Admin: 12/16/21 09:23 Dose: Not Given Documented by: LUCIE Non-Admin Reason: IV Running Tramadol HCl (Tramadol Hcl 50 Mg Tablet) 50 mg PO Q6H PRN PRN Reason: Pain, Severe (Pain Scale 7-10) Last Admin: 12/16/21 05:13 Dose: 50 mg Documented by: NUBIA Labs CBC & Chem 7: 12/16/21 05:21 12/16/21 05:21 Labs: Laboratory Results - last 24 hr 12/12/21 12/15/21 12/16/21 13:56 15:30 05:21 MCV MCH MCHC RDW Plt Count MPV Immature Gran % (Auto) Neut % (Auto) Lymph % (Auto) [place] % (Auto) Eos % (Auto) Baso % (Auto) Lymph # (Auto) [place] # (Auto) Eos # (Auto) Baso # (Auto) Abs Immat Gran (auto) Absolute Neuts (auto) Absolute Nucleated RBC Nucleated RBC % (auto) Anion Gap 16 Estim Creat Clear Calc 11.5 Estimated GFR 6 Random Glucose TNP Fasting Glucose 103 H Calcium 8.3 L Total Bilirubin 0.7 AST 189 H ALT 155 H Alkaline Phosphatase 49 Total Creatine Kinase 04872 H D Total Protein 5.5 L Albumin 3.1 L Urine Color YELLOW Urine Appearance CLEAR Urine pH 5.5 Ur Specific [place] 1.010 Urine Protein 1+ H Urine Glucose (UA) NEG Urine Ketones NEG Urine Blood 3+ H Urine Nitrite NEG Ur Leukocyte Esterase NEG Urine RBC 0-2 Urine WBC 1-4 Ur Squamous Epith Cells TRACE Ur Renal Epithelial Cell TRACE Amorphous Sediment 1+ Urine Bacteria NONE Granular Casts 5-9 Urine Mucus NONE Hepatitis A IgM Ab Nonreactive 12/16/21 05:21 MCV 82.0 MCH 28.3 MCHC 34.6 RDW 13.2 Plt Count 306 MPV 9.0 L Immature Gran % (Auto) 0.3 Neut % (Auto) 72.2 Lymph % (Auto) 15.3 L [place] % (Auto) 10.0 Eos % (Auto) 2.0 Baso % (Auto) 0.2 Lymph # (Auto) 1.8 [place] # (Auto) 1.2 Eos # (Auto) 0.2 Baso # (Auto) 0.0 Abs Immat Gran (auto) 0.04 H Absolute Neuts (auto) 8.5 H Absolute Nucleated RBC 0.000 Nucleated RBC % (auto) 0.0 Anion Gap Estim Creat Clear Calc Estimated GFR Random Glucose Fasting Glucose Calcium Total Bilirubin AST ALT Alkaline Phosphatase Total Creatine Kinase Total Protein Albumin Urine Color Urine Appearance Urine pH Ur Specific [place] Urine Protein Urine Glucose (UA) Urine Ketones Urine Blood Urine Nitrite Ur Leukocyte Esterase Urine RBC Urine WBC Ur Squamous Epith Cells Ur Renal Epithelial Cell Amorphous Sediment Urine Bacteria Granular Casts Urine Mucus Hepatitis A IgM Ab Assessment and Plan (1) Rhabdomyolysis: Status: Acute (2) Elevated LFTs: Status: Acute Plan hospital d#5 36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 Noted to have TALYA/rhabdomyolysis. admitted to cocaine use night prior to admission # TALYA # non-traumatic rhabdomyolysis - due to cocaine-induced vasoconstriction + pigment nephropathy. Nephrology following. d/c IV bicarbonate, continue IV NS. monitor CPK which is coming down, SCr which is still going up. # elevated LFTs - due to rhabdomyolysis - background RICE on US # cocaine abuse - opioid use disorder - CARE Team consulted # VTE ppx - UFH In my clinical judgment, the patient requires continued hospitalization for the following reasons: worsening renal injury + rhabdomyolysis requiring IV fluids + lab monitoring Quality Stroke Does the patient have a stroke diagnosis?: No VTE Prior VTE?: No VTE Risk Level:: Medical - moderate - high VTE Device Contraindication: Treatment Not Indicated VTE Drug Contraindication: N/A - Med Ordered
--- NOTE | 2021-12-16 10:41 | P.PNNP_ITS ---
Subjective Subjective Date of Service: 12/16/21 Principal diagnosis: talya, rhabdo Interval history: Seen and examined,events noted Physical Exam Vital Signs: Vital Signs: Last Vital Signs Temp 97.7 F 12/16/21 07:51 Pulse 59 12/16/21 07:51 Resp 18 12/16/21 07:51 BP 160/93 H 12/16/21 07:51 Pulse Ox 97 12/16/21 07:51 BMI result Body Mass Index 39.5 Const: Other: Awake alert oriented x3 no acute distress General: cooperative, no acute distress, alert and awake Nutritional Appearance: well nourished Orientation/consciousness: patient oriented x3 Limitations: no limitations HEENT: Head: Yes normal to inspection and Yes atraumatic Ears: hearing grossly normal bilaterally and external ears normal General nose exam: Normal external nose present, no nasal discharge noted and no epistaxis Face and sinus: Yes normal facial exam, No abrasion and No laceration Mouth: Normal oral and palatal mucosa present, no drooling and no muffled voice Eyes: General: appearance normal, both eyes and all related structures Periorbital: periorbital findings normal Eyelids: Yes eyelids normal Conjunctivae: conjunctivae normal Pupils: Equal, round and reactive pupils present EOM: EOMs intact bilaterally Neck: Neck: Yes normal visual inspection, Yes full ROM and Yes no lymphadenopathy Chest: Chest palpation & inspection: normal inspection of the chest Resp: Other: Clear to auscultation bilaterally no rales rhonchi wheezes Effort & Inspection: normal respiratory effort and able to speak in complete sentences Auscultation: clear to auscultation bilaterally Cardio: Other: No S4; positive S1-S2; no murmurs rubs or gallops Rate: regular rate Rhythm: regular rhythm GI: Other: Soft nontender nondistended with normoactive bowel sounds Inspection: Yes normal to inspection Skin: Other: mild bruising to the forehead Neuro: General: patient oriented x3 and moves all extremities Cranial nerves: Yes Equal, round and reactive pupils present Cognition (Neuro): normal cognition Motor exam (neuro): 5/5 motor strength present throughout Sensory Exam: Normal double simultaneous stimulation for sensation Coordination: [id number] test normal Extrem: Other: No edema bilaterally General: Yes normal to inspection, Yes full ROM and Yes capillary refill normal Psych: Appearance: grossly normal Mental Status: mental status grossly normal Affect: normal affect Attitude: cooperative Thought process: Normal thought process present Thought content: Normal thought content p resent Insight: Good insight present (Psych) Objective Data Labs CBC & Chem 7: 12/16/21 05:21 12/16/21 05:21 Labs: Laboratory Results - last 24 hr 12/12/21 12/15/21 12/16/21 13:56 15:30 05:21 WBC RBC Hgb Hct MCV MCH MCHC RDW Plt Count MPV Immature Gran % (Auto) Neut % (Auto) Lymph % (Auto) [place] % (Auto) Eos % (Auto) Baso % (Auto) Lymph # (Auto) [place] # (Auto) Eos # (Auto) Baso # (Auto) Abs Immat Gran (auto) Absolute Neuts (auto) Absolute Nucleated RBC Nucleated RBC % (auto) Sodium 137 Potassium 3.9 Chloride 96 Carbon Dioxide 29 Anion Gap 16 BUN 68 H Creatinine 10.47 H* Estim Creat Clear Calc 11.5 Estimated GFR 6 Random Glucose TNP Fasting Glucose 103 H Calcium 8.3 L Total Bilirubin 0.7 AST 189 H ALT 155 H Alkaline Phosphatase 49 Total Creatine Kinase 86237 H D Total Protein 5.5 L Albumin 3.1 L Urine Color YELLOW Urine Appearance CLEAR Urine pH 5.5 Ur Specific [place] 1.010 Urine Protein 1+ H Urine Glucose (UA) NEG Urine Ketones NEG Urine Blood 3+ H Urine Nitrite NEG Ur Leukocyte Esterase NEG Urine RBC 0-2 Urine WBC 1-4 Ur Squamous Epith Cells TRACE Ur Renal Epithelial Cell TRACE Amorphous Sediment 1+ Urine Bacteria NONE Granular Casts 5-9 Urine Mucus NONE Hepatitis A IgM Ab Nonreactive 12/16/21 05:21 WBC 11.8 H RBC 4.66 Hgb 13.2 L Hct 38.2 L MCV 82.0 MCH 28.3 MCHC 34.6 RDW 13.2 Plt Count 306 MPV 9.0 L Immature Gran % (Auto) 0.3 Neut % (Auto) 72.2 Lymph % (Auto) 15.3 L [place] % (Auto) 10.0 Eos % (Auto) 2.0 Baso % (Auto) 0.2 Lymph # (Auto) 1.8 [place] # (Auto) 1.2 Eos # (Auto) 0.2 Baso # (Auto) 0.0 Abs Immat Gran (auto) 0.04 H Absolute Neuts (auto) 8.5 H Absolute Nucleated RBC 0.000 Nucleated RBC % (auto) 0.0 Sodium Potassium Chloride Carbon Dioxide Anion Gap BUN Creatinine Estim Creat Clear Calc Estimated GFR Random Glucose Fasting Glucose Calcium Total Bilirubin AST ALT Alkaline Phosphatase Total Creatine Kinase Total Protein Albumin Urine Color Urine Appearance Urine pH Ur Specific [place] Urine Protein Urine Glucose (UA) Urine Ketones Urine Blood Urine Nitrite Ur Leukocyte Esterase Urine RBC Urine WBC Ur Squamous Epith Cells Ur Renal Epithelial Cell Amorphous Sediment Urine Bacteria Granular Casts Urine Mucus Hepatitis A IgM Ab Procedures Date of Service Date of Service: 12/16/21 Assessment & Plan Assessment and plan (1) Acute kidney injury: Status: Acute (2) Rhabdomyolysis: Status: Acute (3) Elevated LFTs: Status: Acute Plan 1.Non-Oliguric TALYA: c/w Rhabdo in comb with cocaine assoc vasocnstriction which incr ATN injury; doubt renal vasculits from cocaine ( Levamisole) contince incr Scr but no indication for HD yet 2. Rhabdo: CPk decr 3. Cocaine use 4. Vol status: no evid of hypervol REC: cont IVF ( goal is to get UOP > 100) as we monitor for hypervol; no indication for HD yet will follow alonso with team and hope to avoid HD Time Spent With Patient Time: Total time spent is greater than 50% in coordination of care (as documented) at patient's floor/unit and/or counseling patient: Progress Note: Quality Stroke Does the patient have a stroke diagnosis?: No
[2021-12-16 11:35] VITALS: BP 163/93; PULSE 59; RESP 18; TEMP 36; O2SAT 100
[2021-12-16 15:06] VITALS: BP 161/88; PULSE 65; RESP 18; TEMP 36.7; O2SAT 98
[2021-12-16] MEDS: Morphine Sulfate 2 MG/ML CARTRIDGE IVPUSH ×2 (16:32→20:01)
[2021-12-16 19:23] VITALS: BP 161/86; PULSE 67; RESP 18; TEMP 36.8; O2SAT 98
[2021-12-16] MEDS: 0.9 % Sodium Chloride Flush 3 ML SYRINGE IVFLUSH (20:01)
[2021-12-16 23:24] VITALS: BP 155/86; PULSE 79; RESP 18; TEMP 37; O2SAT 98
[2021-12-17] MEDS: traMADoL HCL 50 MG TABLET PO ×2 (00:18→17:55)
[2021-12-17] MEDS: Morphine Sulfate 2 MG/ML CARTRIDGE IVPUSH ×6 (02:13→21:38)
[2021-12-17] MEDS: 0.9 % Sodium Chloride 1,000 ML 125 ML IVCONT ×3 (02:13→21:39)
[2021-12-17 03:59] VITALS: BP 151/77; PULSE 62; RESP 18; TEMP 36.4; O2SAT 99
[2021-12-17] MEDS: Heparin Sodium,Porcine 5,000 UNIT/ML VIAL 5000 UNIT SUBCUT ×3 (05:32→21:37)
[2021-12-17 06:46] LABS: Anion Gap 18 (12-20); Blood Urea Nitrogen 72 mg/dL (9-16); Calcium 8.3 mg/dL (8.4-10.2); Carbon Dioxide 26 mmol/L (22-29); Chloride 97 mmol/L (96-108); Creatinine Clr Calc Pharmacy 10.9; Estimated Glomerular Filt Rate 5; Glucose Random 98 mg/dL (60-115); Sodium 137 mmol/L (135-145)
[2021-12-17 07:57] VITALS: BP 169/87; PULSE 58; RESP 18; TEMP 36.6; O2SAT 99
--- NOTE | 2021-12-17 10:21 | P.PNNP_ITS ---
Subjective Subjective Date of Service: 12/17/21 Principal diagnosis: talya, rhabdo Interval history: Seen and examined,events noted Physical Exam Vital Signs: Vital Signs: Last Vital Signs Temp 97.9 F 12/17/21 07:57 Pulse 58 12/17/21 07:57 Resp 18 12/17/21 07:57 BP 169/87 H 12/17/21 07:57 Pulse Ox 99 12/17/21 07:57 BMI result Body Mass Index 39.5 Const: Other: Awake alert oriented x3 no acute distress General: cooperative, no acute distress, alert and awake Nutritional Appearance: well nourished Orientation/consciousness: patient oriented x3 Limitations: no limitations HEENT: Head: Yes normal to inspection and Yes atraumatic Ears: hearing grossly normal bilaterally and external ears normal General nose exam: Normal external nose present, no nasal discharge noted and no epistaxis Face and sinus: Yes normal facial exam, No abrasion and No laceration Mouth: Normal oral and palatal mucosa present, no drooling and no muffled voice Eyes: General: appearance normal, both eyes and all related structures Periorbital: periorbital findings normal Eyelids: Yes eyelids normal Conjunctivae: conjunctivae normal Pupils: Equal, round and reactive pupils present EOM: EOMs intact bilaterally Neck: Neck: Yes normal visual inspection, Yes full ROM and Yes no lymphadenopathy Chest: Chest palpation & inspection: normal inspection of the chest Resp: Other: Clear to auscultation bilaterally no rales rhonchi wheezes Effort & Inspection: normal respiratory effort and able to speak in complete sentences Auscultation: clear to auscultation bilaterally Cardio: Other: No S4; positive S1-S2; no murmurs rubs or gallops Rate: regular rate Rhythm: regular rhythm GI: Other: Soft nontender nondistended with normoactive bowel sounds Inspection: Yes normal to inspection Skin: Other: mild bruising to the forehead Neuro: General: patient oriented x3 and moves all extremities Cranial nerves: Yes Equal, round and reactive pupils present Cognition (Neuro): normal cognition Motor exam (neuro): 5/5 motor strength present throughout Sensory Exam: Normal double simultaneous stimulation for sensation Coordination: [id number] test normal Extrem: Other: No edema bilaterally General: Yes normal to inspection, Yes full ROM and Yes capillary refill normal Psych: Appearance: grossly normal Mental Status: mental status grossly normal Affect: normal affect Attitude: cooperative Thought process: Normal thought process present Thought content: Normal thought content p resent Insight: Good insight present (Psych) Objective Data Labs CBC & Chem 7: 12/16/21 05:21 12/17/21 06:00 Labs: Laboratory Results - last 24 hr 12/17/21 06:00 Sodium 137 Potassium 4.0 Chloride 97 Carbon Dioxide 26 Anion Gap 18 BUN 72 H Creatinine 10.97 H* Estim Creat Clear Calc 10.9 Estimated GFR 5 Random Glucose 98 Calcium 8.3 L Total Creatine Kinase 7706 H D Procedures Date of Service Date of Service: 12/17/21 Assessment & Plan Assessment and plan (1) Acute kidney injury: Status: Acute (2) Rhabdomyolysis: Status: Acute (3) Elevated LFTs: Status: Acute Plan 1.Non-Oliguric TALYA: c/w Rhabdo in comb with cocaine assoc vasocnstriction which incr ATN injury; doubt renal vasculits from cocaine ( Levamisole) contince incr Scr but no indication for HD yet SCr seems to be plateuing which is a good sign and would expect Scr to start dropping in next 24 hrs 2. Rhabdo: CPk decr 3. Cocaine use 4. Vol status: no evid of hypervol REC: cont IVF for now ( goal is to get UOP > 100) as we monitor for hypervol; no indication for HD yet will follow alonso with team and hope to avoid HD Time Spent With Patient Time: Total time spent is greater than 50% in coordination of care (as documented) at patient's floor/unit and/or counseling patient: Progress Note: Quality Stroke Does the patient have a stroke diagnosis?: No
--- NOTE | 2021-12-17 11:00 | HO.PM.IMPN ---
Subjective Subjective Date of Service: 12/17/21 Interval History: This history was taken in Polish from the patient. No new complaints CPK down, SCr up a little Urinating well Review of Systems Review of Systems: Yes all other systems are reviewed and are negative Physical Exam Vital Signs: Vital Signs: Last Vital Signs Temp 97.9 F 12/17/21 07:57 Pulse 58 12/17/21 07:57 Resp 18 12/17/21 07:57 BP 169/87 H 12/17/21 07:57 Pulse Ox 99 12/17/21 07:57 BMI result Body Mass Index 39.5 Gen: in no acute distress HEENT: sclera anicteric, moist mucus membranes Neck: supple Lungs: clear to auscultation bilaterally Heart: regular rate and rhythm, no murmurs, obese Abd: soft, non-tender, non-distended Ext: no edema Skin: warm/well-perfused Neuro: alert and oriented x3, no focal findings Psych: appropriate affect Objective Data Active Medications Heparin Sodium (Porcine) (Heparin Sodium,Porcine 5,000 Unit/Ml Vial) 5,000 unit SUBCUT Q8H [facility] Last Admin: 12/17/21 05:32 Dose: 5,000 unit Documented by: ELIZABETH Sodium Chloride (Ns) 1,000 mls @ 125 mls/hr IVCONT .Q8H [facility] Last Infusion: 12/17/21 10:51 Dose: 0 mls/hr Documented by: DORIAN Morphine Sulfate (Morphine Sulfate 2 Mg/Ml Cartridge) 2 mg IVPUSH Q2H PRN; Protocol PRN Reason: severe pain Last Admin: 12/17/21 08:55 Dose: 2 mg Documented by: DORIAN Ondansetron HCl (Ondansetron Hcl 4 Mg/2 Ml Vial) 4 mg IVPUSH Q8H PRN PRN Reason: Nausea and Vomiting Pharmacy Consult (Consult Rx Perform Med Rec) 1 each MISCELLANE ONCE PRN PRN Reason: Consult order Sodium Chloride (0.9 % Sodium Chloride Flush 3 Ml Syringe) 3 ml IVFLUSH QSHIFT [facility] Last Admin: 12/17/21 08:51 Dose: Not Given Documented by: DORIAN Non-Admin Reason: IV Running Tramadol HCl (Tramadol Hcl 50 Mg Tablet) 50 mg PO Q6H PRN PRN Reason: Pain, Severe (Pain Scale 7-10) Last Admin: 12/17/21 00:18 Dose: 50 mg Documented by: ANILQC Labs CBC & Chem 7: 12/16/21 05:21 12/17/21 06:00 Labs: Laboratory Results - last 24 hr 12/17/21 06:00 Anion Gap 18 Estim Creat Clear Calc 10.9 Estimated GFR 5 Random Glucose 98 Calcium 8.3 L Total Creatine Kinase 7706 H D Assessment and Plan (1) Rhabdomyolysis: Status: Acute (2) Elevated LFTs: Status: Acute Plan hospital d#6 36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 Noted to have TALYA/rhabdomyolysis. admitted to cocaine use night prior to admission # TALYA # non-traumatic rhabdomyolysis - due to cocaine-induced vasoconstriction + pigment nephropathy. Nephrology following. d/c IV bicarbonate, continue IV NS. monitor CPK which is coming down, SCr which is still going up but hopefully about to plateau # elevated LFTs - due to rhabdomyolysis - background RICE on US # cocaine abuse - opioid use disorder - CARE Team consulted # VTE ppx - UFH In my clinical judgment, the patient requires continued hospitalization for the following reasons: worsening renal injury + rhabdomyolysis requiring IV fluids + lab monitoring Quality Stroke Does the patient have a stroke diagnosis?: No VTE Prior VTE?: No VTE Risk Level:: Medical - moderate - high VTE Device Contraindication: Treatment Not Indicated VTE Drug Contraindication: N/A - Med Ordered
[2021-12-17 11:38] VITALS: BP 155/82; PULSE 63; RESP 18; TEMP 36.8; O2SAT 100
--- NOTE | 2021-12-17 12:22 | P.CDIC_ITS ---
CDI Concurrent Query Documentation Clarification: PHYSICIAN'S DOCUMENTATION REQUEST Date of Query: 12/17/21 1222 Patient Name: Steve Bledsoe Admit Date: 12/12/21 Dear Doctor, A review of the medical record indicates additional documentation may be needed. Please review below and update the documentation accordingly. Clinical Indicators: Risk Factors/Clinical Indicators/Treatments Nephrology note 12/17 - Plan: c/w Rhabdo in comb w cocaine associated vasoconstriction which incr ATN - doubt renal vasculitis from cocaine, continue SCr but no indication for HD yet. Please clarify which of the following accurately represents the patient's renal status: * Acute renal failure with suspected ATN * Acute renal failure with other pathology (medullary, papillary, or cortical necrosis) * Other (please specify) * Unable to determine Criteria for TALYA* Stages of Chronic Kidney Disease* 1. Increase in serum creatinine by ? 0.3 mg/dL Level D escription GFR (?26.5 micromol/L) within 48 hours, or G1 Normal or High > 90 2. Increase in serum creatinine to ?1.5 times baseline, G2 Mildly decreased 60 ? 89 which is known or presumed to have occurred within 7 days, or G3a Mildly to moderately decreased 45 ? 59 3. Urine volume <0.5 mL/kg/hour for six hours G3b Moderately to severely decreased 30 - 44 G4 Severely decreased 15 ? 29 G5 Kidney failure < 15 *Source: Kidney Disease: Improving Global Outcomes (KDIGO) 2012 Use of terms such as suspected, likely, concern for, or probable (associated with a specific diagnosis that is being evaluated, monitored, or treated as if it exists) are acceptable and can be coded in the inpatient setting, when documented at the time of discharge. Thank you, Sasha James [facility], CDIS Extension: [phone] Please use your independent medical judgment in providing your response. THIS QUERY IS PART OF THE PERMANENT MEDICAL RECORD Provider Response: Other Other Diagnosis: TALYA due to rhabdomyolysis and cocaine-induced vasoconstriction
[2021-12-17 13:21] LABS: Myeloperoxidase Antibody <1.0 AI; Proteinase 3 PR3 Antibodies <1.0 AI
--- NOTE | 2021-12-17 14:35 | MHC.CM.PN ---
nurse case sealer note electronic medical record reviewed long with case discussed with staff francois and hospitlaist met with patient with interperter, per doucmentation (admission rhabdomylosis and elevated lfts fentanyl/cocaine abbuse and opiod disorder) bun /creatitine level;s still elevated , patient also receiving iv analgesics. and monitoring labs. discharge plan home no vna services needed care team recommendations transport family
[2021-12-17 15:44] VITALS: BP 139/79; PULSE 68; RESP 18; TEMP 36.6; O2SAT 99
[2021-12-17 20:00] VITALS: BP 167/82; PULSE 62; RESP 18; TEMP 36.8; O2SAT 99
[2021-12-17] MEDS: 0.9 % Sodium Chloride Flush 3 ML SYRINGE IVFLUSH (21:38)
[2021-12-18] VITALS (7 sets, daily range): BP systolic 148–180; BP diastolic 62–102; PULSE 62–75; RESP 16–69; TEMP 36.1–36.9; O2SAT 96–99
[2021-12-18] MEDS: traMADoL HCL 50 MG TABLET PO ×3 (01:43→16:46)
[2021-12-18] MEDS: Morphine Sulfate 2 MG/ML CARTRIDGE IVPUSH ×5 (03:20→20:03)
[2021-12-18] MEDS: Heparin Sodium,Porcine 5,000 UNIT/ML VIAL 5000 UNIT SUBCUT ×3 (05:50→20:04)
[2021-12-18] MEDS: 0.9 % Sodium Chloride 1,000 ML 125 ML IVCONT (05:51)
[2021-12-18 06:39] LABS: Anion Gap 20 (12-20); Blood Urea Nitrogen 72 mg/dL (9-16); Calcium 8.4 mg/dL (8.4-10.2); Carbon Dioxide 20 mmol/L (22-29); Chloride 102 mmol/L (96-108); Creatinine Clr Calc Pharmacy 11.7; Estimated Glomerular Filt Rate 6; Glucose Random 81 mg/dL (60-115); Potassium 4.2 mmol/L (3.3-5.1); Sodium 138 mmol/L (135-145)
--- NOTE | 2021-12-18 09:24 | P.PNIM_ITS ---
Subjective Subjective Date of Service: 12/18/21 Interval History: This history was taken in Mongolian from the patient. Pt c/o persistent pain/swelling R buttock/thigh. No dyspnea Review of Systems Review of Systems: Yes all other systems are reviewed and are negative Physical Exam Vital Signs: Vital Signs: Last Vital Signs Temp 97 F 12/18/21 06:43 Pulse 75 12/18/21 06:43 Resp 16 12/18/21 06:43 BP 152/80 H 12/18/21 06:43 Pulse Ox 98 12/18/21 06:43 BMI result Body Mass Index 39.5 Gen: in no acute distress HEENT: sclera anicteric, moist mucus membranes Neck: supple Lungs: clear to auscultation bilaterally Heart: regular rate and rhythm, no murmurs, obese Abd: soft, non-tender, non-distended Ext: RLE posterior tenderness/swelling of thigh Skin: warm/well-perfused Neuro: alert and oriented x3, no focal findings Psych: appropriate affect Objective Data Active Medications Heparin Sodium (Porcine) (Heparin Sodium,Porcine 5,000 Unit/Ml Vial) 5,000 unit SUBCUT Q8H [facility] Last Admin: 12/18/21 05:50 Dose: 5,000 unit Documented by: ELIZABETH Sodium Chloride (Ns) 1,000 mls @ 125 mls/hr IVCONT .Q8H [facility] Last Admin: 12/18/21 05:51 Dose: 125 mls/hr Documented by: ELIZABETH Morphine Sulfate (Morphine Sulfate 2 Mg/Ml Cartridge) 2 mg IVPUSH Q2H PRN; Protocol PRN Reason: severe pain Last Admin: 12/18/21 05:50 Dose: 2 mg Documented by: ELIZABETH Ondansetron HCl (Ondansetron Hcl 4 Mg/2 Ml Vial) 4 mg IVPUSH Q8H PRN PRN Reason: Nausea and Vomiting Pharmacy Consult (Consult Rx Perform Med Rec) 1 each MISCELLANE ONCE PRN PRN Reason: Consult order Sodium Chloride (0.9 % Sodium Chloride Flush 3 Ml Syringe) 3 ml IVFLUSH QSHIFT [facility] Last Admin: 12/17/21 21:38 Dose: 3 ml Documented by: ELIZABETH Tramadol HCl (Tramadol Hcl 50 Mg Tablet) 50 mg PO Q6H PRN PRN Reason: Pain, Severe (Pain Scale 7-10) Last Admin: 12/18/21 01:43 Dose: 50 mg Documented by: ELIZABETH Labs CBC & Chem 7: 12/16/21 05:21 12/18/21 05:26 Labs: Laboratory Results - last 24 hr 12/15/21 12/18/21 05:42 05:26 Anion Gap 20 Estim Creat Clear Calc 11.7 Estimated GFR 6 Random Glucose 81 Calcium 8.4 Total Creatine Kinase 6205 H Proteinase 3 (PR3) Ab <1.0 Myeloperoxidase Ab <1.0 Assessment and Plan (1) Rhabdomyolysis: Status: Acute (2) Elevated LFTs: Status: Acute Plan hospital d#7 36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 Noted to have TALYA/rhabdomyolysis. admitted to cocaine use night prior to admission # TALYA due to cocaine-induced vasoconstriction + rhabdomyolysis - SCr finally starting to come down, albeit just a little. Nephrology following. continue IV NS. recheck labs in AM # RLE swelling - US Doppler, r/o DVT # elevated LFTs - due to rhabdomyolysis - background RICE on US # cocaine abuse - opioid use disorder - CARE Team consulted # VTE ppx - UFH In my clinical judgment, the patient requires continued hospitalization for the following reasons: severe TALYA + rhabdomyolysis requiring IV fluids + lab mikael toring Quality Stroke Does the patient have a stroke diagnosis?: No VTE Prior VTE?: No VTE Risk Level:: Medical - moderate - high VTE Device Contraindication: Treatment Not Indicated VTE Drug Contraindication: N/A - Med Ordered
[2021-12-18] MEDS: 0.9 % Sodium Chloride Flush 3 ML SYRINGE IVFLUSH ×2 (09:56→16:00)
--- NOTE | 2021-12-18 13:56 | PM.PNNEP ---
Subjective Subjective Date of Service: 12/18/21 Principal diagnosis: talya, rhabdo Interval history: No dyspnea No overload Physical Exam Vital Signs: Vital Signs: Last Vital Signs Temp 97.8 F 12/18/21 11:06 Pulse 62 12/18/21 11:06 Resp 20 12/18/21 11:06 BP 148/74 H 12/18/21 11:06 Pulse Ox 96 12/18/21 11:06 BMI result Body Mass Index 39.5 Const: General: cooperative, alert and awake Orientation/consciousness: patient oriented x3 Resp: Effort & Inspection: normal respiratory effort and able to speak in complete sentences Auscultation: clear to auscultation bilaterally Cardio: Rate: regular rate Rhythm: regular rhythm GI: Other: Soft nontender nondistended with normoactive bowel sounds Neuro: General: patient oriented x3 and moves all extremities Extrem: Other: No edema bilaterally Objective Data Labs CBC & Chem 7: 12/16/21 05:21 12/18/21 05:26 Labs: Laboratory Results - last 24 hr 12/18/21 05:26 Sodium 138 Potassium 4.2 Chloride 102 Carbon Dioxide 20 L Anion Gap 20 BUN 72 H Creatinine 10.30 H* Estim Creat Clear Calc 11.7 Estimated GFR 6 Random Glucose 81 Calcium 8.4 Total Creatine Kinase 6205 H Procedures Date of Service Date of Service: 12/18/21 Assessment & Plan Assessment and plan (1) Acute kidney injury: Status: Acute (2) Rhabdomyolysis: Status: Acute (3) Elevated LFTs: Status: Acute Plan 1.Non-Oliguric TALYA: Cocain rhabdo. Cr peaked and plateaued. Hopeful for recovering in coming 24-48 hours. Non-oliguric. No [employer] indidcations. 2. Rhabdo: CPk decreasing. Watch CaxPhos product 3. non-gap acidosis 2/2 0.9% saline products Plan: - Stop 0.9% saline - start LR at 125cc/hr - renal panel daily - monitor UOP - Renal restricted diet. - monitor Ca Phos Time Spent With Patient Time: Total time spent is greater than 50% in coordination of care (as documented) at patient's floor/unit and/or counseling patient: Progress Note: Quality Stroke Does the patient have a stroke diagnosis?: No
[2021-12-18] MEDS: Lactated Ringers 1,000 ML 125 ML IVCONT (14:20)
--- NOTE | 2021-12-18 15:55 | MHC.CM.PN ---
PLAN IS FOR PATIENT TO DC TOMORROW (12/19/21) CASE MANAGEMENT FOLLOWING
[2021-12-19] MEDS: Morphine Sulfate 2 MG/ML CARTRIDGE IVPUSH ×3 (00:50→08:19)
[2021-12-19] MEDS: Lactated Ringers 1,000 ML 125 ML IVCONT ×2 (00:50→08:20)
[2021-12-19 03:43] VITALS: BP 144/92; PULSE 68; RESP 18; TEMP 36.8; O2SAT 95
[2021-12-19] MEDS: Heparin Sodium,Porcine 5,000 UNIT/ML VIAL 5000 UNIT SUBCUT (04:45)
[2021-12-19 06:30] LABS: Alanine Aminotransferase 83 U/L (0-40); Albumin Level 2.9 g/dL (3.5-5.0); Alkaline Phosphatase 41 U/L (39-117); Anion Gap 14 (12-20); Aspartate Amino Transferase 60 U/L (5-37); Bilirubin Direct 0.2 mg/dL (0.0-0.5); Bilirubin Total 0.4 mg/dL (0.0-1.0); Blood Urea Nitrogen 65 mg/dL (9-16); Calcium 8.4 mg/dL (8.4-10.2); Carbon Dioxide 25 mmol/L (22-29); Chloride 104 mmol/L (96-108); Creatinine Clr Calc Pharmacy 14.5; Estimated Glomerular Filt Rate 7; Glucose Random 114 mg/dL (60-115); Potassium 3.8 mmol/L (3.3-5.1); Sodium 139 mmol/L (135-145); Total Protein 5.1 g/dL (6.5-8.0)
[2021-12-19 07:37] VITALS: BP 143/88; PULSE 61; RESP 18; TEMP 36.9; O2SAT 98
[2021-12-19 08:24] LABS: Phosphorus 6.9 mg/dL (2.7-4.5)
--- NOTE | 2021-12-19 10:14 | PM.DS ---
DS: Providers Provider Date of Service: 12/19/21 Date of admission: 12/12/21 16:20 Date of discharge: 12/19/21 Primary care physician: None Physician Consults: 12/12/21 12:28 Consult to Care Team Stat Comment: Reason for consultation: possible SI 12/13/21 08:40 Consult to Nephrology Routine Consulting Provider: Fuad Dumont Reason for consultation: rhabdo/ckd Has provider been notified: Yes 12/15/21 08:01 Consult to Care Team Routine Comment: Reason for consultation: cocaine fentanyl 12/19/21 10:02 Consult to Crisis Stat Reason for consultation: medically cleared for d/c DS: Diagnosis Discharge Diagnosis (1) Acute kidney injury: Status: Acute (2) Rhabdomyolysis: Status: Acute (3) Elevated LFTs: Status: Acute (4) Cocaine abuse: Status: Acute (5) Opioid abuse: Status: Acute DS: Summary Hospital Course Hospital Course: from admission H+P by hospitalist Gary Perera DO, 12/11/21: 36-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 He states the car was running and exhaust toes was not connected to the outside.? When discussed with , she states patient has been detailing for some time and this is unusual that he would not prevent the cars.? She also states he did large amount of cocaine overnight.? She states he gets very depressed after these episodes. In the emergency room workup consistent with creatinine of 3.35 [place] [address] and transaminitis.? Patient will be admitted for treatment of same.? Of note patient carbon dioxide level was 4.9 (nonsmoker) (all information gleaned through an rubber stamp maker) This 36 year-old man presented after a possible syncopal episode while detailing car. He thought it was due to poor ventilation, but carboxyhemoglobin level did not support acute poisoning.? He was noted to have TALYA/rhabdomyolysis.? He did state that he used cocaine the night prior to admission. He was admitted for renal monitoring and forced saline diuresis to treat TALYA, which was attributed to to cocaine-induced vasoconstriction + rhabdomyolysis. Serum creatinine peaked at 11 and came down to 8.3 at discharge. He was not uremic and did not require hemodialysis. [place]K [place] [address]16 on admission and 3160 on discharge. He was counseled to avoid cocaine and all substances of abuse. Elevated LFTs were attributed to rhabdomyolysis, though he also has background RICE on US. He was instructed to follow up with primary care in 1 weeks and with nephrology in 1-2 weeks and should have CMP and CPK repeated in 4 days. Time Spent with Patient Time attestation: Total time spent providing and/or coordinating discharge services: Discharge coordination time: Greater than 30 minutes Quality: Safe Use of Opioids Does Pt have an Active Cancer Diagnosis on the Problem List?: No Quality: Stroke Does the patient have a stroke diagnosis?: No Physical Exam Vital Signs: Vital Signs: Last Vital Signs Temp 98.4 F 12/19/21 07:37 Pulse 61 12/19/21 07:37 Resp 18 12/19/21 07:37 BP 143/88 H 12/19/21 07:37 Pulse Ox 98 12/19/21 07:37 BMI result Body Mass Index 39.5 Gen: in no acute distress HEENT: sclera anicteric, moist mucus membranes Neck: supple Lungs: clear to auscultation bilaterally Heart: regular rate and rhythm, no murmurs, obese Abd: soft, non-tender, non-distended Ext: RLE posterior tenderness/swelling of thigh Skin: warm/well-perfused Neuro: alert and oriented x3, no focal findings Psych: appropriate affect DS: Data Data Completed and Pending Completed studies during hospitalization [Text1]: Laboratory Results WBC 11.8 X10*3/uL (4.8-10.8) H 12/16/21 05:21 RBC 4.66 X10*6/uL (4.60-5.80) 12/16/21 05:21 Hgb 13.2 g/dl (14.0-18.0) L 12/16/21 05:21 Hct 38.2 % (42.0-52.0) L 12/16/21 05:21 MCV 82.0 fL (80.0-98.0) 12/16/21 05:21 MCH 28.3 pg (27.0-33.0) 12/16/21 05:21 MCHC 34.6 g/dl (31.0-36.0) 12/16/21 05:21 RDW 13.2 % (11.0-16.0) 12/16/21 05:21 Plt Count 306 X10*3/uL (160-400) 12/16/21 05:21 MPV 9.0 fL (9.4-12.4) L 12/16/21 05:21 Immature Gran % (Auto) 0.3 % (0.0-0.4) 12/16/21 05:21 Neut % (Auto) 72.2 % (45-73) 12/16/21 05:21 Lymph % (Auto) 15.3 % (20-40) L 12/16/21 05:21 [place] % (Auto) 10.0 % (2-11) 12/16/21 05:21 Eos % (Auto) 2.0 % (0-4) 12/16/21 05:21 Baso % (Auto) 0.2 % (0-2) 12/16/21 05:21 Lymph # (Auto) 1.8 X10*3/uL (1.2-4.9) 12/16/21 05:21 [place] # (Auto) 1.2 X10*3/uL (0.1-1.2) 12/16/21 05:21 Eos # (Auto) 0.2 X10*3/uL (0.0-0.4) 12/16/21 05:21 Baso # (Auto) 0.0 X10*3/uL (0.0-0.2) 12/16/21 05:21 Abs Immat Gran (auto) 0.04 X10*3/uL (0.00-0.03) H 12/16/21 05:21 Absolute Neuts (auto) 8.5 x10*3/uL (2.0-8.3) H 12/16/21 05:21 Absolute Nucleated RBC 0.000 X10*3/uL (0.0-0.012) 12/16/21 05:21 Nucleated RBC % (auto) 0.0 /100WBC (0.0-0.2) 12/16/21 05:21 Smear Tech's Comments VERIFIED 12/12/21 12:53 PT 12.4 SEC (9.9-13.0) 12/14/21 06:20 INR 1.1 (0.9-1.1) 12/14/21 06:20 VBG pH 7.34 (7.32-7.43) 12/12/21 12:59 VBG pCO2 35 mmHg 12/12/21 12:59 VBG pO2 116 mmHg 12/12/21 12:59 VBG HCO3 19 mmol/L (22-26) L 12/12/21 12:59 VBG O2 Saturation 99.0 % 12/12/21 12:59 VBG Base Excess -5.4 mmol/L 12/12/21 12:59 Carboxyhemoglobin % 4.9 % 12/12/21 13:06 Sodium 139 mmol/L (135-145) 12/19/21 05:53 Potassium 3.8 mmol/L (3.3-5.1) 12/19/21 05:53 Chloride 104 mmol/L (96-108) 12/19/21 05:53 Carbon Dioxide 25 mmol/L (22-29) 12/19/21 05:53 Anion Gap 14 (12-20) 12/19/21 05:53 BUN 65 mg/dL (9-16) H 12/19/21 05:53 Creatinine 8.30 mg/dL (0.5-1.4) H* 12/19/21 05:53 Estim Creat Clear Calc 14.5 12/19/21 05:53 Estimated GFR 7 12/19/21 05:53 Random Glucose 114 mg/dL (60-115) D 12/19/21 05:53 Fasting Glucose 103 mg/dL (60-99) H 12/16/21 05:21 Calcium 8.4 mg/dL (8.4-10.2) 12/19/21 05:53 Phosphorus 6.9 mg/dL (2.7-4.5) H 12/19/21 05:53 Total Bilirubin 0.4 mg/dL (0.0-1.0) 12/19/21 05:53 Direct Bilirubin 0.2 mg/dL (0.0-0.5) 12/19/21 05:53 AST 60 U/L (5-37) H 12/19/21 05:53 ALT 83 U/L (0-40) H 12/19/21 05:53 Alkaline Phosphatase 41 U/L (39-117) 12/19/21 05:53 Total Creatine Kinase 3160 U/L (38-174) H D 12/19/21 05:53 Total Protein 5.1 g/dL (6.5-8.0) L 12/19/21 05:53 Albumin 2.9 g/dL (3.5-5.0) L 12/19/21 05:53 Urine Color YELLOW 12/15/21 15:30 Urine Appearance CLEAR 12/15/21 15:30 Urine pH 5.5 (5.0-8.0) 12/15/21 15:30 Ur Specific [place] 1.010 (1.005-1.025) 12/15/21 15:30 Urine Protein 1+ MG/DL (NEG-TRACE) H 12/15/21 15:30 Urine Glucose (UA) NEG MG/DL (NEG) 12/15/21 15:30 Urine Ketones NEG MG/DL (NEG) 12/15/21 15:30 Urine Blood 3+ (NEG) H 12/15/21 15:30 Urine Nitrite NEG (NEG) 12/15/21 15:30 Ur Leukocyte Esterase NEG (NEG) 12/15/21 15:30 Urine RBC 0-2 /HPF (0) 12/15/21 15:30 Urine WBC 1-4 /HPF (0-4) 12/15/21 15:30 Ur Squamous Epith Cells TRACE /LPF 12/15/21 15:30 Ur Renal Epithelial Cell TRACE /LPF 12/15/21 15:30 Amorphous Sediment 1+ /LPF 12/15/21 15:30 Urine Bacteria NONE /LPF 12/15/21 15:30 Granular Casts 5-9 /LPF 12/15/21 15:30 Waxy Casts 0-2 /LPF 12/13/21 03:40 Urine Mucus NONE /LPF 12/15/21 15:30 Urine Yeast 1+ /HPF 12/13/21 03:40 Urine Sperm NOTED 12/13/21 03:40 Ur Random Sodium 24.0 mmol/L 12/13/21 17:34 Urine Creatinine 332.27 mg/dL 12/13/21 17:34 Salicylates < 5.0 mg/dL (15-30) L 12/12/21 12:53 Urine Opiates Screen POSITIVE (Not Detect) H 12/13/21 03:40 Urine Fentanyl Screen POSITIVE (Not Detect) H 12/13/21 03:40 Acetaminophen < 1 mcg/mL (<30) 12/12/21 12:53 Ur Barbiturates Screen Not Detected (Not Detect) 12/13/21 03:40 Ur Phencyclidine Scrn Not Detected (Not Detect) 12/13/21 03:40 Ur Amphetamines Screen Not Detected (Not Detect) 12/13/21 03:40 U Benzodiazepines Scrn Not Detected (Not Detect) 12/13/21 03:40 Urine Cocaine Screen POSITIVE (Not Detect) H 12/13/21 03:40 U Marijuana (THC) Screen Not Detected (Not Detect) 12/13/21 03:40 Ethyl Alcohol < 10 mg/dL 12/12/21 13:56 Proteinase 3 (PR3) Ab <1.0 AI 12/15/21 05:42 Myeloperoxidase Ab <1.0 AI 12/15/21 05:42 COVID-19 (SHIV) Negative (Negative) 12/12/21 13:56 COVID-19 Clin Com See Note 12/12/21 13:56 Hepatitis A IgM Ab Nonreactive (Nonreactive) 12/12/21 13:56 Hep Bs Antigen Negative (Negative) 12/12/21 13:56 Hep Bs Antibody NONREACTIVE (Nonreactive) 12/12/21 13:56 Hep B Core Total Ab Nonreactive (Nonreactive) 12/12/21 13:56 Hepatitis C Ab (EIA) Nonreactive (Nonreactive) 12/12/21 13:56 Impressions Chest X-Ray 12/12/21 12:35 IMPRESSION: Unremarkable chest exam. Unremarkable AP pelvis and right hip exam. Hip/Pelvis X-Ray 12/12/21 12:35 IMPRESSION: Unremarkable chest exam. Unremarkable AP pelvis and right hip exam. Abdomen/Pelvis CT 12/12/21 14:23 IMPRESSION: Unremarkable exam. Fleischner guidelines were followed. Head CT 12/12/21 14:23 IMPRESSION: Unremarkable exam. Abdomen Ultrasound 12/13/21 07:59 IMPRESSION: * Mild steatosis of the liver. * Gallbladder has a few small polyps. * No acute sonographic findings in the examined abdomen. Venous Duplex 12/18/21 15:29 IMPRESSION: No DVT demonstrated in the right lower extremity. Exam is limited due to body habitus. Discharge Plan Discharge Patient Disposition: Home, Self-Care Discharge Diagnosis: Acute kidney injury and rhabdomyolysis due to cocaine abuse Referrals: Pam Martel DO [Physician] - 1 Week Piero Goodman MD [Physician] - 1 Week Discharge Medications: New cyclobenzaprine 5 mg tablet 5 mg PO TID PRN (Reason: back or leg pain) Qty: 14 0RF Discharge Orders: Discharge Order (Routine); Ordered 12/19/21 Ordered By: Libra Jin Diet: advance to usual diet Activity on Discharge: As tolerated Stand Alone Forms: Patient Portal Discharge page Print Language: Burundian Other Ambulatory Orders: Creatine Kinase Total (Routine) Timeframe: 4 Days Facility: [facility] - Location: Laboratory Ordered By: Libra Jin Comprehensive Met. Panel (Routine) Timeframe: 4 Days Facility: [facility] - Location: Laboratory Ordered By: Libra Jin Care Plan Goals: avoiding substances of abuse recovery of normal kidney function Health Concerns: Acute kidney injury and rhabdomyolysis due to cocaine abuse Plan of Treatment: avoid cocaine and all substances of abuse drink plenty of water recheck labs in 3 days: CMP, CPK follow up in 1 week with Primary Care, in 1-2 weeks with Nephrology Assessment: see Discharge Summary Patient Instructions: Rhabdomyolysis (DC), Cocaine Abuse (DC)
--- NOTE | 2021-12-19 11:27 | MHC.CARE ---
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 Pt toxicology screen was positive for opiates, fentayl and cocaine. Pt stated he had briefly turned on the car but put forget to turn if off. Pt denies current or past SI/HI/AH/VH. Pt denies history of IPLOC admissions. Pt has poly substance use. Pt was met with by the recovery team. CARE Team spoke with Pts Juliane [phone] , they have been marred for the past 15 years. She states Pt has no psych history and has no safety concerns. CARE Team spoke with Dr. Annabel Meadows for Pt to be discharged home and provided with [facility] Crisis information.
[2021-12-19 11:34] VITALS: BP 157/86; PULSE 65; RESP 18; TEMP 36.7; O2SAT 99
== END 2021-12-19 13:43 | disposition home or self-care (01) | DRG 816 ==
LOC: HO.ED 15:25 → HO.EDOVER 16:27 → HO.S3 12-13 16:44
PROVIDERS: Internal Medicine Nephrology; Physician Assistant Medical; Admitting Provider Hospitalist; Emergency Provider Emergency Medicine; Visit Provider Family Medicine
DX: T40.5X1A Poisoning by cocaine, accidental (unintentional), initial encounter (principal); M62.82 Rhabdomyolysis; N17.9 Acute kidney failure, unspecified; K75.81 Nonalcoholic steatohepatitis (NASH); F11.20 Opioid dependence, uncomplicated; I73.9 Peripheral vascular disease, unspecified; F14.10 Cocaine abuse, uncomplicated; Z20.822 Contact with and (suspected) exposure to COVID-19; Z79.899 Other long term (current) drug therapy
CPT/HCPCS: 36415; 70450; 71046; 73502; 74176; 76705; 80048; 80051; 80053; 80076; 80143; 80179; 80307; 81001; 82077; 82375; 82550; 82565; 82803; 84100; 84300; 84520; 85025; 85610; 86021; 86704; 86706; 86709; 86803; 87340; 87635; 93005; 93971; 96360; 96361; 99285; J1650; J2270

== ENCOUNTER 2021-12-23 09:38 | Outpatient (REF) | payer MEDICAID, SELFPAY ==
[2021-12-23 11:07] LABS: Alanine Aminotransferase 61 U/L (0-40); Albumin Level 4.2 g/dL (3.5-5.0); Alkaline Phosphatase 48 U/L (39-117); Anion Gap 15 (12-20); Aspartate Amino Transferase 34 U/L (5-37); Bilirubin Total 0.7 mg/dL (0.0-1.0); Blood Urea Nitrogen 21 mg/dL (9-16); Calcium 9.8 mg/dL (8.4-10.2); Carbon Dioxide 26 mmol/L (22-29); Chloride 107 mmol/L (96-108); Estimated Glomerular Filt Rate 34; Glucose Random 94 mg/dL (60-115); Potassium 4.9 mmol/L (3.3-5.1); Sodium 143 mmol/L (135-145); Total Protein 7.4 g/dL (6.5-8.0)
== END 2021-12-23 09:39 | disposition home or self-care (01) ==
LOC: HO.LAB 09:38
PROVIDERS: Visit Provider Family Medicine
DX: N17.9 Acute kidney failure, unspecified (principal); M62.82 Rhabdomyolysis
CPT/HCPCS: 36415; 80053; 82550

== ENCOUNTER 2022-12-16 07:26 | Emergency (ER) | payer OTHER, SELFPAY ==
--- NOTE | ~2022-12-16 | XR_ITS ---
EXAMINATION: XR CHEST CLINICAL INFORMATION: Asthma, cough for 2 to 3 days. COMPARISON: 12/12/2021 chest radiographs. TECHNIQUE: Frontal view of the chest was obtained. FINDINGS: No significant abnormality is noted involving the heart, lungs, mediastinum, bony thorax or soft tissues. A joby shaped radiopaque density overlies the midline upper chest without interval change. XR/XR chest 1V IMPRESSION: 1. No acute cardiopulmonary process. 2. Radiopaque density overlying the midline upper chest without interval change. This was found to overlie the anteroinferior neck soft tissues on the previous radiographs.
--- NOTE | ~2022-12-16 | XR_ITS ---
EXAMINATION: XR CHEST CLINICAL INFORMATION: Cough for 2 to 3 days, lateral view requested. COMPARISON: PA view performed earlier, chest radiographs from 12/12/2021. TECHNIQUE: Single lateral view of the chest. FINDINGS: No significant abnormality is noted involving the heart, lungs, mediastinum, bony thorax or soft tissues. Tiny shaped radiopaque density overlies the anteroinferior neck soft tissues. XR/XR chest 1V IMPRESSION: 1. No acute cardiopulmonary process. 2. Tiny shaped radiopaque density overlying the anteroinferior neck soft tissues could be associated with a neck muscle or piercing. Correlate with physical exam.
[2022-12-16 07:34] VITALS: BP 120/64; PULSE 93; RESP 18; TEMP 36.4; O2SAT 90; BMI 39.5
--- NOTE | 2022-12-16 07:42 | PC.NURSE ---
pt speaks in full sentences. lungs - tight/exp wheezing all lobes.
--- NOTE | 2022-12-16 08:03 | ED.ASTHMA ---
HPI - Asthma General Chief Complaint: Asthma Stated Complaint: tight chest, cough Time Seen by Provider: 12/16/22 08:03 Source: patient and general helper Mode of arrival: ambulatory Limitations: language barrier History of Present Illness HPI Narrative: Patient is a 37 year old assigned male at with a history of asthma presenting to the emergency department today with an asthma exacerbation. Patient states that he has been having episodic shortness of breath over the past 3 days with night time symptoms which spontaneously resolved without using an inhaler. He does not currently have an inhaler. He was going into work today when he experienced another asthma attack with non-resolving shortness of breath and decided to visit the emergency department. Patient denies any dizziness, lightheadedness, abdominal pain, nausea, vomiting, fever, chills, blurry vision, double vision, loss of vision, chest pain, back pain, night sweats, pain with urination, increased urinary frequency, increased urinary urgency, blood in his urine or stool, syncope or a near syncopal episode, recent trauma or falls, bowel incontinence, bladder incontinence, bowel retention, bladder retention, or any other complaints at this time. MD complaint: asthma attack Onset (ago): hour(s) Associated symptoms: none Asthma History: history of prior ED visit Related Data Current Asthma Therapy: none Previous Rx's Medication Instructions Recorded cyclobenzaprine 5 mg tablet 5 mg PO TID PRN back or leg pain 12/19/21 #14 tabs albuterol sulfate 90 mcg/actuation 1 inh inhalation QID PRN shortness 12/16/22 aerosol inhaler of breath or wheezing #8.5 grams prednisone 20 mg tablet 20 mg PO DAILY 7 days #7 tabs 12/16/22 Allergies Allergy/AdvReac Type Severity Reaction Status Date / Time No Known Allergies Allergy Verified 12/12/21 12:02 Review of Systems Review of Systems: Yes all other systems are reviewed and are negative Constitutional: Constitutional: Reports no additional constitutional complaints, Denies chills and Denies fever(s) Eyes: Eyes: Reports no additional eye complaints ENT: Reports system reviewed and no additional complaints, except as documented Cardiovascular: Cardiovascular: Reports no additional cardiovascular complaints, Reports dyspnea and Reports dyspnea on exertion Respiratory: Respiratory: Reports dyspnea, Reports dyspnea on exertion and Reports wheezing Gastrointestinal: Gastrointestinal: Reports no additional gastrointestinal complaints Musculoskeletal: Musculoskeletal: Reports no additional musculoskeletal complaints Neurologic: Reports system reviewed and no additional complaints, except as documented Allergic/Immunologic: Allergic/Immunologic: Reports wheezing PMFSH Past Medical History Attestation statement: The following information was validated with the patient. Source: old records reviewed and nursing notes reviewed Medical History Acute kidney injury Asthma Carbon monoxide exposure Elevated LFTs Opioid abuse Rhabdomyolysis Social History Social History Household Members: Family Housing: House Do you presently have visiting nurse or other home services: No Alcohol intake: never Patient Tobacco Use Status: Never used Tobacco Smoked in Last 30 Days: No Use of substances other than those prescribed or required for medical reasons: No Substance Use Type: Crack/Cocaine, Opiates and Prescription Drugs Advance Directives: No service: No Current occupational status: employed Physical Exam Vital Signs: Vital Signs: Last Vital Signs Temp 97.6 F 12/16/22 07:34 Pulse 101 H 12/16/22 09:50 Resp 16 12/16/22 09:50 BP 111/49 L 12/16/22 09:50 Pulse Ox 100 12/16/22 09:50 O2 Del Method Aerosol Mask 12/16/22 09:50 O2 Flow Rate 4 12/16/22 09:50 BMI result Body Mass Index 39.5 Const: General: cooperative and in distress (labored breathing) Nutritional Appearance: average body habitus Orientation/consciousness: oriented to person, oriented to place, oriented to time and patient oriented x3 Limitations: language barrier HEENT: Head: Yes normal to inspection Ears: hearing grossly normal bilaterally General nose exam: Normal external nose present Eyes: General: appearance normal, both eyes and all related structures Neck: Neck: Yes normal visual inspection and Yes full ROM Chest: Chest palpation & inspection: normal inspection of the chest Resp: Effort & Inspection: able to speak in complete sentences, audible wheezes and labored Auscultation: wheezes expiratory wheezes (bilateral lung baker ) Cardio: Rate: regular rate Rhythm: regular rhythm GI: Inspection: Yes normal to inspection Neuro: General: oriented to person, oriented to place, oriented to time and patient oriented x3 Medications Administered Discontinued Medications Generic Name Dose Route Start Last Admin Trade Name Freq PRN Reason Stop Dose Admin Albuterol Sulfate 10 mg 12/16/22 08:05 12/16/22 08:36 Albuterol Sulfate (0.083%) 2.5 Mg/3 Ml Vial.Neb INHALE 12/16/22 08:06 10 mg ONCE ONE Administration Methylprednisolone Sodium Succinate 60 mg 12/16/22 08:05 12/16/22 08:13 Methylprednisolone Sod Succ 125 Mg/2 Ml Vial IM 12/16/22 08:06 60 mg ONCE ONE Administration Medical Decision Making Medical Decision Making [facility] Narrative: Patient is a 37 year old assigned male at with a history of asthma presenting to the emergency department today with an acute asthma exacerbation. Patient's physical exam showed wheezing throughout all lung baker. Patient's blood work showed an elevated WBC count but was otherwise unremarkable. Patient's chest x-ray showed no acute process. I explained my physical exam findings as well as all test results to the patient. I answered all questions asked by the patient. Patient received albuterol and IM Solu-Medrol which he stated helped his symptoms significantly. I stressed the importance of the patient taking his medication as prescribed. I stressed the importance of the patient following up with his primary care provider. I stressed the importance of the patient returning to the emergency department immediately if his symptoms were to worsen or if he were to develop any dizziness, shortness of breath, difficulty breathing, chest pain, blurry vision, loss of vision, nausea, vomiting, abdominal pain, fever, chills, back pain, or any other complaints. Patient verbalized agreement and understanding with this treatment plan and discharge. Differential Diagnosis Differential Diagnoses: The differential diagnosis associated with the presentation includes asthma exacerbation Lab Data [facility] Lab Attestation statement: I reviewed the patient's lab results. 12/16/22 08:22 12/16/22 08:22 Labs: Lab Results 12/16/22 12/16/22 12/16/22 Range/Units 07:43 08:22 08:22 WBC 14.6 H (4.8-10.8) X10*3/uL RBC 4.92 (4.60-5.80) X10*6/uL Hgb 13.7 L (14.0-18.0) g/dl Hct 42.2 (42.0-52.0) % MCV 85.8 (80.0-98.0) fL MCH 27.8 (27.0-33.0) pg MCHC 32.5 (31.0-36.0) g/dl RDW 13.7 (11.0-16.0) % Plt Count 314 (160-400) X10*3/uL MPV 8.6 L (9.4-12.4) fL Immature Gran % (Auto) 0.3 (0.0-0.4) % Neut % (Auto) 83.1 H (45-73) % Lymph % (Auto) 6.7 L (20-40) % [place] % (Auto) 6.5 (2-11) % Eos % (Auto) 3.0 (0-4) % Baso % (Auto) 0.4 (0-2) % Lymph # (Auto) 1.0 L (1.2-4.9) X10*3/uL [place] # (Auto) 1.0 (0.1-1.2) X10*3/uL Eos # (Auto) 0.4 (0.0-0.4) X10*3/uL Baso # (Auto) 0.1 (0.0-0.2) X10*3/uL Abs Immat Gran (auto) 0.04 H (0.00-0.03) X10*3/uL Absolute Neuts (auto) 12.1 H (2.0-8.3) x10*3/uL Absolute Nucleated RBC 0.000 (0.0-0.012) X10*3/uL Nucleated RBC % (auto) 0.0 (0.0-0.2) /100WBC Sodium 139 (135-145) mmol/L Potassium 4.4 (3.3-5.1) mmol/L Chloride 104 (96-108) mmol/L Carbon Dioxide 26 (22-29) mmol/L Anion Gap 13 (12-20) BUN 11 (9-16) mg/dL Creatinine 0.88 (0.5-1.4) mg/dL Estim Creat Clear Calc 135.7 Estimated GFR > 60 Random Glucose 89 (60-115) mg/dL Calcium 8.5 D (8.4-10.2) mg/dL Magnesium 1.8 (1.6-2.6) mg/dL Total Bilirubin 0.6 (0.0-1.0) mg/dL AST 22 (5-37) U/L ALT 21 (0-40) U/L Alkaline Phosphatase 82 (39-117) U/L Total Protein 6.9 (6.5-8.0) g/dL Albumin 4.0 (3.5-5.0) g/dL Influenza Type A (PCR) NEGATIVE (Negative) Influenza Type B (PCR) NEGATIVE (Negative) RSV RNA Qual (PCR) NEGATIVE (Negative) SARS-CoV-2 RNA (RT-PCR) NEGATIVE (Negative) Independent Interpretation I performed an independent interpretation of an: Plain X-Ray Interpretation: My interpretation is in agreement with the radiologist's impression of this imaging study. EXAMINATION: XR CHEST CLINICAL INFORMATION: Cough for 2 to 3 days, lateral view requested. COMPARISON: PA view performed earlier, chest radiographs from 12/12/2021. TECHNIQUE: Single lateral view of the chest. FINDINGS: No significant abnormality is noted involving the heart, lungs, mediastinum, bony thorax or soft tissues. Tiny shaped radiopaque density overlies the anteroinferior neck soft tissues. XR/XR chest 1V IMPRESSION: 1.? No acute cardiopulmonary process. 2.? Tiny shaped radiopaque density overlying the anteroinferior neck soft tissues could be associated with a neck muscle or piercing. Correlate with physical exam. Dictated By: Sagar Guy MD Signed By: Electronically signed by Sagar Guy MD 12/16/22 0842 Discharge Plan Discharge Clinical Impression: Asthma Patient Disposition: Home, Self-Care Instructions: Asthma (DC) Additional Instructions: Follow up with your primary care provider. Return to the emergency department immediately if your symptoms worsen or if you develop any dizziness, shortness of breath, difficulty breathing, chest pain, blurry vision, loss of vision, nausea, vomiting, abdominal pain, fever, chills, back pain, or any other complaints. Prescriptions: New prednisone 20 mg tablet 20 mg PO DAILY 7 Days Qty: 7 0RF albuterol sulfate 90 mcg/actuation HFA aerosol inhaler 1 inh inhalation QID PRN (Reason: shortness of breath or wheezing) Qty: 8.5 0RF No Action cyclobenzaprine 5 mg tablet 5 mg PO TID PRN (Reason: back or leg pain) Qty: 14 0RF Referrals: [facility] [place] [facility] [Provider Group] (Call to establish and follow up with a primary care provider.) [facility] [place] [facility] [Provider Group] (Call to establish and follow up with a primary care provider.) [facility] [place] [facility] [Provider Group] (Call to establish and follow up with a primary care provider.) Stand Alone Forms: Work/School Release Interventions: ED Discharge Assessment Last Done: 12/16/22 10:32 Discharge Date/Time: 12/16/22 10:33 Print Language: Khmer
[2022-12-16] MEDS: methylPREDNISolone Sod Succ 125 MG/2 ML VIAL 60 MG IM (08:13)
[2022-12-16 08:26] LABS: MANUAL DIFF FLAG NO
[2022-12-16 08:27] LABS: Basophils Absolute Auto 0.1 X10*3/uL (0.0-0.2); Basophils Percent Auto 0.4 % (0-2); Eosinophils Absolute Auto 0.4 X10*3/uL (0.0-0.4); Hematocrit 42.2 % (42.0-52.0); Hemoglobin 13.7 g/dl (14.0-18.0); Imm Gran Abs Auto 0.04 X10*3/uL (0.00-0.03); Imm Gran Pct Auto 0.3 % (0.0-0.4); Lymphocytes Percent Auto 6.7 % (20-40); Mean Corpuscular HGB Conc 32.5 g/dl (31.0-36.0); Mean Corpuscular Hemoglobin 27.8 pg (27.0-33.0); Mean Corpuscular Volume 85.8 fL (80.0-98.0); Mean Platelet Volume 8.6 fL (9.4-12.4); Monocytes Percent Auto 6.5 % (2-11); Neutrophils Absolute Auto 12.1 x10*3/uL (2.0-8.3); Neutrophils Percent Auto 83.1 % (45-73); Platelet Count 314 X10*3/uL (160-400); Red Blood Count 4.92 X10*6/uL (4.60-5.80); Red Cell Distribution Width 13.7 % (11.0-16.0); White Blood Count 14.6 X10*3/uL (4.8-10.8)
[2022-12-16 08:31] LABS: Influenza A PCR NEGATIVE (Negative); Influenza B PCR NEGATIVE (Negative); Resp Syncy Virus RNA Qual PCR NEGATIVE (Negative); SARS COV2 PCR INHOUSE NEGATIVE (Negative)
[2022-12-16] MEDS: Albuterol Sulfate (0.083%) 2.5 MG/3 ML VIAL.NEB 10 MG INHALE (08:36)
[2022-12-16 08:37] VITALS: PULSE 72; RESP 18; O2SAT 100
[2022-12-16 08:42] LABS: Alanine Aminotransferase 21 U/L (0-40); Alkaline Phosphatase 82 U/L (39-117); Anion Gap 13 (12-20); Aspartate Amino Transferase 22 U/L (5-37); Bilirubin Total 0.6 mg/dL (0.0-1.0); Blood Urea Nitrogen 11 mg/dL (9-16); Calcium 8.5 mg/dL (8.4-10.2); Carbon Dioxide 26 mmol/L (22-29); Chloride 104 mmol/L (96-108); Creatinine Clr Calc Pharmacy 135.7; Estimated Glomerular Filt Rate > 60; Glucose Random 89 mg/dL (60-115); Magnesium 1.8 mg/dL (1.6-2.6); Potassium 4.4 mmol/L (3.3-5.1); Sodium 139 mmol/L (135-145); Total Protein 6.9 g/dL (6.5-8.0)
[2022-12-16 09:00] VITALS: O2SAT 93
[2022-12-16 09:10] VITALS: BP 121/59; PULSE 95; RESP 22; O2SAT 99
[2022-12-16 09:14] VITALS: RESP 22
--- NOTE | 2022-12-16 09:16 | PC.NURSE ---
pt AOx3, vitals stable. pt on 4L O2 while updraft treatment is running. exp wheezes noted throughout right lung. will cont to monitor
[2022-12-16 09:50] VITALS: BP 111/49; PULSE 101; RESP 16; O2SAT 100
== END 2022-12-16 10:33 | disposition home or self-care (01) ==
PROVIDERS: Physician Assistant Medical; Emergency Provider Emergency Medicine
DX: J45.909 Unspecified asthma, uncomplicated (principal); R07.89 Other chest pain; R05.9 Cough, unspecified; Z20.822 Contact with and (suspected) exposure to COVID-19; Z20.828 Contact with and (suspected) exposure to other viral communicable diseases; Z79.899 Other long term (current) drug therapy
CPT/HCPCS: 0241U; 36415; 71045; 80053; 83735; 85025; 94640; 96372; 99284; J2930